=== PATIENT | female | born 1950 | race Caucasian/White ===

== ENCOUNTER 2021-03-19 10:40 | Outpatient (REF) | payer MEDICARE, MEDICAID, SELFPAY ==
[2021-03-19 13:47] LABS: MANUAL DIFF FLAG NO
[2021-03-19 13:52] LABS: Basophils Percent Auto 0.3 % (0-2); Eosinophils Absolute Auto 0.1 X10*3/uL (0.0-0.4); Eosinophils Percent Auto 1.3 % (0-4); Hematocrit 38.1 % (37.0-47.0); Hemoglobin 12.9 g/dl (12.0-16.0); Imm Gran Abs Auto 0.01 X10*3/uL (0.00-0.03); Imm Gran Pct Auto 0.3 % (0.0-0.4); Lymphocytes Percent Auto 24.4 % (20-40); Mean Corpuscular HGB Conc 33.9 g/dl (31.0-35.0); Mean Corpuscular Hemoglobin 31.4 pg (27.0-33.0); Mean Corpuscular Volume 92.7 fL (80.0-98.0); Mean Platelet Volume 10.8 fL (9.4-12.3); Monocytes Absolute Auto 0.4 X10*3/uL (0.1-1.2); Monocytes Percent Auto 9.7 % (2-11); Neutrophils Absolute Auto 2.5 x10*3/uL (2.0-8.3); Platelet Count 180 X10*3/uL (160-400); Red Blood Count 4.11 X10*6/uL (4.20-5.50); Red Cell Distribution Width 13.2 % (11.0-16.0); White Blood Count 3.9 X10*3/uL (4.8-10.8)
[2021-03-19 14:37] LABS: Alanine Aminotransferase 19 U/L (0-31); Albumin Level 3.9 g/dL (3.5-5.0); Alkaline Phosphatase 74 U/L (39-117); Anion Gap 11 (12-20); Aspartate Amino Transferase 24 U/L (5-31); Bilirubin Total 0.8 mg/dL (0.0-1.0); Blood Urea Nitrogen 16 mg/dL (9-16); Calcium 9.2 mg/dL (8.4-10.2); Carbon Dioxide 31 mmol/L (22-29); Chloride 104 mmol/L (96-108); Cholesterol 218 mg/dL; Estimated Glomerular Filt Rate > 60; Glucose Fasting 86 mg/dL (60-99); HDL Cholesterol 78 mg/dL; LDL Cholesterol Calculated 128 mg/dl; Potassium 3.8 mmol/L (3.3-5.1); Sodium 142 mmol/L (135-145); Total Protein 6.5 g/dL (6.5-8.0); Triglycerides 60 mg/dL
[2021-03-19 15:03] LABS: Thyroid Stimulating Hormone 0.47 uIU/mL (0.32-4.0)
== END 2021-03-19 10:41 | disposition home or self-care (01) ==
LOC: HO.10HDL 10:40
PROVIDERS: Visit Provider Internal Medicine
DX: R07.89 Other chest pain (principal); I10 Essential (primary) hypertension; R06.2 Wheezing; R60.0 Localized edema
CPT/HCPCS: 36415; 80053; 80061; 84443; 85025

== ENCOUNTER 2021-06-17 09:53 | Outpatient (REF) | payer MEDICARE, MEDICAID, SELFPAY ==
[2021-06-17 10:26] LABS: Estimated Average Glucose 94 mg/dL; Hemoglobin A1c % 4.9 %
[2021-06-17 10:58] LABS: Alanine Aminotransferase 14 U/L (0-31); Albumin Level 3.9 g/dL (3.5-5.0); Alkaline Phosphatase 79 U/L (39-117); Anion Gap 10 (12-20); Aspartate Amino Transferase 21 U/L (5-31); Bilirubin Total 0.5 mg/dL (0.0-1.0); Blood Urea Nitrogen 26 mg/dL (9-16); Calcium 9.2 mg/dL (8.4-10.2); Carbon Dioxide 32 mmol/L (22-29); Chloride 103 mmol/L (96-108); Estimated Glomerular Filt Rate > 60; Glucose Fasting 90 mg/dL (60-99); Potassium 3.4 mmol/L (3.3-5.1); Sodium 142 mmol/L (135-145); Total Protein 6.5 g/dL (6.5-8.0)
== END 2021-06-17 09:54 | disposition home or self-care (01) ==
LOC: HO.10HDL 09:53
PROVIDERS: Visit Provider Internal Medicine
DX: Z00.00 Encounter for general adult medical examination without abnormal findings (principal); E78.00 Pure hypercholesterolemia, unspecified; I10 Essential (primary) hypertension; Z86.010 Personal history of colon polyps
CPT/HCPCS: 36415; 80053; 83036

== ENCOUNTER 2021-09-16 10:38 | Outpatient (REF) | payer MEDICARE, MEDICAID, SELFPAY ==
[2021-09-16 13:30] LABS: Alanine Aminotransferase 15 U/L (0-31); Albumin Level 3.8 g/dL (3.5-5.0); Alkaline Phosphatase 73 U/L (39-117); Anion Gap 10 (12-20); Aspartate Amino Transferase 19 U/L (5-31); Bilirubin Total 0.5 mg/dL (0.0-1.0); Blood Urea Nitrogen 16 mg/dL (9-16); Calcium 8.6 mg/dL (8.4-10.2); Carbon Dioxide 30 mmol/L (22-29); Chloride 106 mmol/L (96-108); Cholesterol 169 mg/dL; Estimated Glomerular Filt Rate > 60; Glucose Fasting 80 mg/dL (60-99); HDL Cholesterol 74 mg/dL; LDL Cholesterol Calculated 88 mg/dl; Potassium 3.6 mmol/L (3.3-5.1); Sodium 142 mmol/L (135-145); Total Protein 6.3 g/dL (6.5-8.0); Triglycerides 37 mg/dL
[2021-09-16 13:44] LABS: Thyroid Stimulating Hormone 0.27 uIU/mL (0.32-4.0); Vitamin D 25-OH Total 29.4 ng/mL (>30)
== END 2021-09-16 10:39 | disposition home or self-care (01) ==
LOC: HO.10HDL 10:38
PROVIDERS: Visit Provider Internal Medicine
DX: E78.00 Pure hypercholesterolemia, unspecified (principal); I10 Essential (primary) hypertension; M23.90 Unspecified internal derangement of unspecified knee
CPT/HCPCS: 36415; 80053; 80061; 82306; 84443

== ENCOUNTER 2021-09-24 16:16 | Outpatient (REF) | payer MEDICARE, MEDICAID, SELFPAY | END 2021-09-24 16:17 | disposition home or self-care (01) | LOC: HO.LAB 16:16 | PROVIDERS: PCP Internal Medicine; Visit Provider Internal Medicine | DX: R35.0 Frequency of micturition (principal) | CPT/HCPCS: 87086 ==

== ENCOUNTER 2021-12-22 10:28 | Outpatient (REF) | payer MEDICARE, MEDICAID, SELFPAY ==
[2021-12-22 12:57] LABS: TSH reflex Free T4 0.43 uIU/mL (0.32-4.0)
[2021-12-24 00:56] LABS: Triiodothyronine T3 Free 3.4 pg/mL (2.3-4.2)
== END 2021-12-22 10:29 | disposition home or self-care (01) ==
LOC: HO.LAB 10:28
PROVIDERS: PCP Internal Medicine; Visit Provider Internal Medicine
DX: E05.90 Thyrotoxicosis, unspecified without thyrotoxic crisis or storm (principal); E78.00 Pure hypercholesterolemia, unspecified; I10 Essential (primary) hypertension; R35.0 Frequency of micturition
CPT/HCPCS: 36415; 84443; 84481

== ENCOUNTER 2022-03-23 10:01 | Outpatient (REF) | payer MEDICARE, MEDICAID, SELFPAY ==
[2022-03-23 10:55] LABS: MANUAL DIFF FLAG NO
[2022-03-23 11:03] LABS: Basophils Percent Auto 0.6 % (0-2); Eosinophils Percent Auto 0.8 % (0-4); Hematocrit 37.4 % (37.0-47.0); Hemoglobin 12.3 g/dl (12.0-16.0); Imm Gran Abs Auto 0.01 X10*3/uL (0.00-0.03); Imm Gran Pct Auto 0.3 % (0.0-0.4); Lymphocytes Absolute Auto 1.1 X10*3/uL (1.2-4.9); Lymphocytes Percent Auto 29.9 % (20-40); Mean Corpuscular HGB Conc 32.9 g/dl (31.0-35.0); Mean Corpuscular Hemoglobin 31.7 pg (27.0-33.0); Mean Corpuscular Volume 96.4 fL (80.0-98.0); Mean Platelet Volume 11.1 fL (9.4-12.3); Monocytes Absolute Auto 0.4 X10*3/uL (0.1-1.2); Monocytes Percent Auto 10.1 % (2-11); Neutrophils Absolute Auto 2.1 x10*3/uL (2.0-8.3); Neutrophils Percent Auto 58.3 % (45-73); Platelet Count 150 X10*3/uL (160-400); Red Blood Count 3.88 X10*6/uL (4.20-5.50); Red Cell Distribution Width 12.7 % (11.0-16.0); White Blood Count 3.6 X10*3/uL (4.8-10.8)
[2022-03-23 11:42] LABS: Alanine Aminotransferase 16 U/L (0-31); Albumin Level 3.8 g/dL (3.5-5.0); Alkaline Phosphatase 68 U/L (39-117); Anion Gap 8 (12-20); Aspartate Amino Transferase 24 U/L (5-31); Bilirubin Total 0.6 mg/dL (0.0-1.0); Blood Urea Nitrogen 14 mg/dL (9-16); Calcium 8.6 mg/dL (8.4-10.2); Carbon Dioxide 31 mmol/L (22-29); Chloride 106 mmol/L (96-108); Cholesterol 194 mg/dL; Estimated Glomerular Filt Rate > 60; Glucose Fasting 86 mg/dL (60-99); HDL Cholesterol 73 mg/dL; LDL Cholesterol Calculated 113 mg/dl; Potassium 3.6 mmol/L (3.3-5.1); Sodium 141 mmol/L (135-145); Triglycerides 44 mg/dL; Vitamin D 25-OH Total 32.8 ng/mL (>30)
== END 2022-03-23 10:02 | disposition home or self-care (01) ==
LOC: HO.10HDL 10:01
PROVIDERS: Visit Provider Internal Medicine
DX: E78.00 Pure hypercholesterolemia, unspecified (principal); I10 Essential (primary) hypertension; R07.89 Other chest pain
CPT/HCPCS: 36415; 80053; 80061; 82306; 85025

== ENCOUNTER 2022-06-15 10:15 | Outpatient (REF) | payer MEDICARE, MEDICAID, SELFPAY ==
[2022-06-15 10:50] LABS: MANUAL DIFF FLAG NO
[2022-06-15 10:57] LABS: Basophils Percent Auto 0.4 % (0-2); Eosinophils Absolute Auto 0.1 X10*3/uL (0.0-0.4); Eosinophils Percent Auto 2.2 % (0-4); Hematocrit 37.1 % (37.0-47.0); Hemoglobin 12.2 g/dl (12.0-16.0); Imm Gran Abs Auto 0.01 X10*3/uL (0.00-0.03); Imm Gran Pct Auto 0.4 % (0.0-0.4); Lymphocytes Absolute Auto 0.9 X10*3/uL (1.2-4.9); Lymphocytes Percent Auto 32.3 % (20-40); Mean Corpuscular HGB Conc 32.9 g/dl (31.0-35.0); Mean Corpuscular Hemoglobin 31.2 pg (27.0-33.0); Mean Corpuscular Volume 94.9 fL (80.0-98.0); Mean Platelet Volume 10.3 fL (9.4-12.3); Monocytes Absolute Auto 0.3 X10*3/uL (0.1-1.2); Monocytes Percent Auto 11.5 % (2-11); Neutrophils Absolute Auto 1.5 x10*3/uL (2.0-8.3); Neutrophils Percent Auto 53.2 % (45-73); Platelet Count 152 X10*3/uL (160-400); Red Blood Count 3.91 X10*6/uL (4.20-5.50); Red Cell Distribution Width 13.4 % (11.0-16.0); White Blood Count 2.8 X10*3/uL (4.8-10.8)
== END 2022-06-15 10:16 | disposition home or self-care (01) ==
LOC: HO.10HDL 10:15
PROVIDERS: Visit Provider Internal Medicine
DX: Z00.00 Encounter for general adult medical examination without abnormal findings (principal); D69.6 Thrombocytopenia, unspecified; I10 Essential (primary) hypertension; M17.11 Unilateral primary osteoarthritis, right knee
CPT/HCPCS: 36415; 85025

== ENCOUNTER 2022-09-16 10:13 | Outpatient (REF) | payer MEDICARE, MEDICAID, SELFPAY ==
[2022-09-16 11:37] LABS: Alanine Aminotransferase 13 U/L (0-31); Albumin Level 3.8 g/dL (3.5-5.0); Alkaline Phosphatase 74 U/L (39-117); Anion Gap 9 (12-20); Aspartate Amino Transferase 21 U/L (5-31); Bilirubin Total 0.7 mg/dL (0.0-1.0); Blood Urea Nitrogen 20 mg/dL (9-16); Calcium 9.3 mg/dL (8.4-10.2); Carbon Dioxide 30 mmol/L (22-29); Chloride 106 mmol/L (96-108); Estimated Glomerular Filt Rate > 60; Glucose Random 83 mg/dL (60-115); Potassium 4.2 mmol/L (3.3-5.1); Sodium 141 mmol/L (135-145); Total Protein 6.4 g/dL (6.5-8.0)
[2022-09-16 11:55] LABS: Free T4 (Free Thyroxine) 1.04 ng/dL (0.71-1.85); Thyroid Stimulating Hormone 0.45 uIU/mL (0.32-4.0)
[2022-09-18 04:53] LABS: Triiodothyronine T3 Free 3.7 pg/mL (2.3-4.2)
== END 2022-09-16 10:14 | disposition home or self-care (01) ==
LOC: HO.10HDL 10:13
PROVIDERS: Visit Provider Internal Medicine
DX: G47.33 Obstructive sleep apnea (adult) (pediatric) (principal); D69.6 Thrombocytopenia, unspecified; E05.90 Thyrotoxicosis, unspecified without thyrotoxic crisis or storm; I10 Essential (primary) hypertension; M17.11 Unilateral primary osteoarthritis, right knee
CPT/HCPCS: 36415; 80053; 84439; 84443; 84481

== ENCOUNTER 2023-09-29 09:55 | Outpatient (REF) | payer MEDICARE, MEDICAID, SELFPAY ==
[2023-09-29 10:56] LABS: MANUAL DIFF FLAG NO
[2023-09-29 11:02] LABS: Basophils Percent Auto 0.3 % (0-2); Eosinophils Absolute Auto 0.1 X10*3/uL (0.0-0.4); Eosinophils Percent Auto 2.1 % (0-4); Hematocrit 36.9 % (37.0-47.0); Hemoglobin 12.7 g/dl (12.0-16.0); Imm Gran Abs Auto 0.01 X10*3/uL (0.00-0.03); Imm Gran Pct Auto 0.3 % (0.0-0.4); Lymphocytes Absolute Auto 1.2 X10*3/uL (1.2-4.9); Lymphocytes Percent Auto 34.8 % (20-40); Mean Corpuscular HGB Conc 34.4 g/dl (31.0-35.0); Mean Corpuscular Hemoglobin 31.8 pg (27.0-33.0); Mean Corpuscular Volume 92.3 fL (80.0-98.0); Mean Platelet Volume 10.9 fL (9.4-12.3); Monocytes Absolute Auto 0.4 X10*3/uL (0.1-1.2); Monocytes Percent Auto 10.5 % (2-11); Neutrophils Absolute Auto 1.7 x10*3/uL (2.0-8.3); Platelet Count 148 X10*3/uL (160-400); Red Cell Distribution Width 13.2 % (11.0-16.0); White Blood Count 3.3 X10*3/uL (4.8-10.8)
[2023-09-29 11:20] LABS: Alanine Aminotransferase 12 U/L (0-31); Alkaline Phosphatase 77 U/L (39-117); Anion Gap 10 (12-20); Aspartate Amino Transferase 21 U/L (5-31); Bilirubin Total 0.9 mg/dL (0.0-1.0); Blood Urea Nitrogen 20 mg/dL (9-16); Calcium 9.2 mg/dL (8.4-10.2); Carbon Dioxide 29 mmol/L (22-29); Chloride 107 mmol/L (96-108); Cholesterol 176 mg/dL (<200); Estimated Glomerular Filt Rate > 60; Glucose Random 82 mg/dL (60-115); HDL Cholesterol 73 mg/dL (>40); LDL Cholesterol Calculated 96 mg/dL (<100); Potassium 3.5 mmol/L (3.3-5.1); Sodium 142 mmol/L (135-145); Total Protein 6.9 g/dL (6.5-8.0); Triglycerides 39 mg/dL (<150)
== END 2023-09-29 09:56 | disposition home or self-care (01) ==
LOC: HO.10HDL 09:55
PROVIDERS: Visit Provider Internal Medicine
DX: Z00.00 Encounter for general adult medical examination without abnormal findings (principal); E05.90 Thyrotoxicosis, unspecified without thyrotoxic crisis or storm; E78.00 Pure hypercholesterolemia, unspecified; I10 Essential (primary) hypertension; Z85.3 Personal history of malignant neoplasm of breast; Z96.651 Presence of right artificial knee joint
CPT/HCPCS: 36415; 80053; 80061; 84443; 85025

== ENCOUNTER 2024-04-09 10:39 | Outpatient (REF) | payer OTHER, SELFPAY ==
[2024-04-09 10:59] LABS: MANUAL DIFF FLAG NO
[2024-04-09 11:08] LABS: Basophils Percent Auto 0.2 % (0-2); Eosinophils Percent Auto 0.5 % (0-4); Hematocrit 36.9 % (37.0-47.0); Hemoglobin 12.7 g/dl (12.0-16.0); Imm Gran Abs Auto 0.01 X10*3/uL (0.00-0.03); Imm Gran Pct Auto 0.2 % (0.0-0.4); Lymphocytes Absolute Auto 1.1 X10*3/uL (1.2-4.9); Mean Corpuscular HGB Conc 34.4 g/dl (31.0-35.0); Mean Corpuscular Hemoglobin 32.8 pg (27.0-33.0); Mean Corpuscular Volume 95.3 fL (80.0-98.0); Monocytes Absolute Auto 0.3 X10*3/uL (0.1-1.2); Monocytes Percent Auto 8.3 % (2-11); Neutrophils Absolute Auto 2.7 x10*3/uL (2.0-8.3); Neutrophils Percent Auto 64.8 % (45-73); Platelet Count 150 X10*3/uL (160-400); Red Blood Count 3.87 X10*6/uL (4.20-5.50); Red Cell Distribution Width 13.3 % (11.0-16.0); White Blood Count 4.1 X10*3/uL (4.8-10.8)
[2024-04-09 11:41] LABS: Alanine Aminotransferase 20 U/L (0-31); Albumin Level 4.1 g/dL (3.5-5.0); Alkaline Phosphatase 78 U/L (39-117); Anion Gap 12 (12-20); Aspartate Amino Transferase 29 U/L (5-31); Bilirubin Total 0.6 mg/dL (0.0-1.0); Blood Urea Nitrogen 18 mg/dL (9-16); Calcium 8.9 mg/dL (8.4-10.2); Carbon Dioxide 27 mmol/L (22-29); Chloride 109 mmol/L (96-108); Cholesterol 169 mg/dL (<200); Estimated Glomerular Filt Rate > 60; Glucose Random 88 mg/dL (60-115); HDL Cholesterol 75 mg/dL (>40); LDL Cholesterol Calculated 85 mg/dL (<100); Potassium 4.1 mmol/L (3.3-5.1); Sodium 144 mmol/L (135-145); Triglycerides 47 mg/dL (<150)
[2024-04-13 11:58] LABS: VITAMIN D (1,25 OH) D3 37 pg/mL; Vit D (1,25-Dihydroxy) Total 37 pg/mL (18-72); Vitamin D (1,25 OH) D2 <8 pg/mL
== END 2024-04-09 10:40 | disposition home or self-care (01) ==
LOC: HO.LAB 10:39
PROVIDERS: PCP Internal Medicine; Visit Provider Internal Medicine
DX: D69.59 Other secondary thrombocytopenia (principal); E78.00 Pure hypercholesterolemia, unspecified; I10 Essential (primary) hypertension; M81.8 Other osteoporosis without current pathological fracture; Z68.23 Body mass index [BMI] 23.0-23.9, adult
CPT/HCPCS: 36415; 80053; 80061; 82652; 85025

== ENCOUNTER 2024-10-11 08:55 | Outpatient (REF) | payer OTHER, SELFPAY ==
--- OUTSIDE RECORDS SUMMARY | 2024-10-11 09:07 | XMS_ITS ---
Author Organization [facility] Care Team Providers Care Pediatric Immunologist Name Role Phone Shannen Whiteside Unavailable Unavailable Mireya Ace Unavailable Unavailable Lena Vides Unavailable Unavailable Leelee Cid Unavailable Unavailable Ye THOMPSON, Kirit Sargent Unavailable Unavailable Shandra Smiley Unavailable Unavailable Mireille Wright Unavailable Unavailable Allergies and adverse reactions Code CodeSystem Substance Reaction Severity StartDate Concern Status 028963823 SNOMED CT Penicillins Unknown 08/27/2020 activ e 7804 RXNORM Oxycodone Unknown 08/27/2020 active 6754 RXNORM Meperidine Unknown 08/27/2020 active 2670 RXNORM Codeine Unknown 08/27/2020 active 733 RXNORM Ampicillin Unknown 08/27/2020 active 723 RXNORM Amoxicillin Unknown 08/27/2020 active Care Team Name Role Address Phone Organization [facility] [address] [place] [address], [id number], [facility] (Office): : [facility] 08/27/2020 - 09/14/2020 Shannen Whiteside [address] [place] [address], [place], [address], [place] (Office): : [facility] 08/27/2020 - 09/14/2020 Lenaevon Vides [address] [place] [address], [id number], [facility] (Office): : [phone] [facility] 08/27/2020 - 09/14/2020 Leelee Cid [address] [facility] [address], [facility] [id number] [place] [address] (Office): : [facility] 08/27/2020 - 09/14/2020 Kirit Belcher NP [address] [facility] [address] (Office): [facility] 08/27/2020 - 09/14/2020 Shandra Smiley [address] [facility] [address], [address] (Office): : [phone] [facility] 08/27/2020 - 09/14/2020 Mireille Wright [address] [place] [address], [facility] (Office): : [facility] 08/27/2020 - 09/14/2020 Mental Status Section Date Assessment Total Score Description 09/14/2020 BIMS 15 cognitively int act CAM 0 No delirium ind icated PHQ-9 00 09/02/2020 BIMS 15 cognitively int act CAM 0 No delirium ind icated PHQ-9 00 Problems Problem # Description Date of onset Resolved Date Code CodeSystem Concern Status 1 DIZZINESS AND GIDDINESS 08/27/[address] active 2 ESSENTIAL (PRIMARY) HYPERTENSION 08/27/[address] active 3 OTHER ABNORMALITIES OF GAIT AND MOBILITY 08/27/[address] active 4 OTHER NONDISPLACED FRACTURE OF UPPER END OF LEFT HUMERUS, SUBSEQUENT ENCOUNTER FOR FRACTURE WITH ROUTINE HEALING 08/27/[address] active 5 UNILATERAL PRIMARY OSTEOARTHRITIS, RIGHT HIP 08/27/[address] active 6 UNSPECIFIED FALL, SUBSEQUENT ENCOUNTER 08/27/[address] active 7 UNSPECIFIED FRACTURE OF UPPER END OF UNSPECIFIED HUMERUS, SUBSEQUENT ENCOUNTER FOR FRACTURE WITH ROUTINE HEALING 08/27/[address] active 8 UNSTEADINESS ON FEET 08/27/[address] active 9 WEAKNESS 08/27/[address] active Reason for Referral No Reasons for Referral Entered Social History Social History Observation Description Start Date End Date Code Code System Current Smoking Status Tobacco smoking consumption unknown 481331933 SNOMED CT Sex Assigned At Female 1950 41287-3 [facility] Gender Identity Vital Signs Code Code System Vitals Name Values and Units Timing Information 17261-0 [facility] Pain Level Value=7.0 09/14/2020 9279-1 [facility] Respiratory Rate Value=12.0 Units=/m in 09/12/2020 8462-4 [facility] Blood Pressure-Diastolic Value=66 Un its=mmHg 09/12/2020 8480-6 [facility] Blood Pressure-Systolic Avwzd=760 Un its=mmHg 09/12/2020 8310-5 [facility] Body Temperature Value=96.7 Units= F 09/12/2020 25675-3 [facility] O2 % BldC Oximetry Value=95.0 Units= % 09/12/2020 8867-4 [facility] Heart rate Value=86.0 Units=/min
--- OUTSIDE RECORDS SUMMARY | 2024-10-11 09:07 | XMS_ITS | Clinical Summary ---
Author Organization [facility] Address [address] [place] [address] Phone Care Team Providers Care Brazer Crawler Torch Name Role Phone Telma Olmstead MD Primary Care Provider [phone] Allergies Active Allergy Reactions Criticality Noted Date Comments Jerrell Inhibitors Cough 04/23/2019 Amlodipine 04/23/2019 Leg edema Amoxicillin 10/28/2016 Codeine 10/28/2016 Not listed Meperidine 10/28/2016 Meperidine Hcl 04/23/2019 Not listed Morphine 03/03/2021 Oxycodone-Acetaminophen 10/28/2016 Medications metoprolol succinate (TOPROL-XL) 50 mg 24 hr tablet TAKE 1 AND 1/2 TABLETS BY MOUTH EVERY DAY Active acetaminophen (TYLENOL) 325 mg tablet Take 650 mg by mouth every 6 hours as needed. Active hydroCHLOROthia zide (HYDRODIURIL) 25 mg tablet Take 25 mg by mouth daily. Active pantoprazole (PROTONIX) 40 mg EC tablet Take 1 Tablet by mouth as needed. Active rosuvastatin (CRESTOR) 40 mg tablet Take 1 Tablet by mouth daily. Active losartan (COZAAR) 50 mg tablet Take 50 mg by mouth daily. Active Active Problems Problem Noted Date Diagnosed Date Diverticulosis 03/23/2024 Esophagitis, [place] grade A 03/23/2024 Gastric ulcer 03/23/2024 Hiatal hernia 03/23/2024 Internal hemorrhoids 03/23/2024 Atypical chest pain 02/03/2022 Gastro-esophageal reflux disease without esophag itis 02/03/2022 Chest pain 01/08/2022 Overview (03/23/2024): Last Assessment & Plan: We did discuss her chest discomfort. Its not clear what the etiology of this is. I have asked her to repeat a stress test to rule out coronary artery disease. We did discuss that this could be more of her esophageal spasm or musculoskeletal type pain. Edema 08/20/2021 Overview (03/23/2024): Last Assessment & Plan: Her leg edema has been stable on her hydrochlorothiazide. She will continue on this and will continue to monitor. We will be checking labs to make sure her electrolytes are stable. Cyst of right ovary 07/08/2020 Hypertension 06/09/2020 Overview (03/23/2024): Last Assessment & Plan: Patient's blood pressure today 124/78. This is under excellent control. Continue with hydrochlorothiazide, losartan and metoprolol as prescribed. Lightheadedness 06/09/2020 Palpitations 06/09/2020 Overview (03/23/2024): Last Assessment & Plan: Patient denies any recurrent palpitations. Her symptoms are well controlled on her present dose of beta-kathryn metoprolol 5 mg daily. Continue as prescribed. Pure hypercholesterolemia 06/09/2020 Overview (03/23/2024): Last Assessment & Plan: Patient continues on rosuvastatin 40 mg once a day. We will update a lipid panel. Encounters Date Type Department Care Team Description 08/27/2024 2:24 PM EDT - 08/27/2024 11:59 PM EDT [facility] [address] [phone] Cyst of right ovary; Screening mammogram for breast cancer; History of breast cancer Discharge Disposition: Home or Self Care 08/16/2024 2:00 PM EDT Office Visit Breast [address] [place] [address] Maria Isabel Choe MD Cyst of right ovary (Primary Dx); Screening mammogram for breast cancer; History of breast cancer; Right lower quadrant abdominal swelling, mass and lump 08/09/2024 1:19 PM EDT - 08/09/2024 11:59 PM EDT Hospital Encounter [facility] Ultrasound [address] [place] [address] Cyst of right ovary Discharge Disposition: Home or Self Care from Last 3 Months Surgical History Surgery Date Site/Laterality Comments ESOPHAGOGASTRODUODENOSCOPY PROCEDURE: [place] EGD TRANSORAL BIOPSY SINGLE/MULTIPLE; COMMENT: Performed in 2016 COLONOSCOPY PROCEDURE: HISTORICAL COLONOSCOPY; COMMENT: Performed in 2016 HIP ARTHROPLASTY PROCEDURE: HISTORICAL HIP REPLACEMENT COLONOSCOPY 05/27/2020 PROCEDURE: HISTORICAL COLONOSCOPY; COMMENT: mild sigmoid diverticulosis and small internal hemorrhoids UPPER GASTROINTESTINAL ENDOSCOPY 05/27/2020 PROCEDURE: NJ UPPER GI ENDOSCOPY PERFORMED; COMMENT: small esophageal erosion and small hiatal hernia BREAST LUMPECTOMY 2013 Left PROCEDURE: HISTORICAL BREAST LUMPECTOMY CHOLECYSTECTOMY PROCEDURE: HISTORICAL CHOLECYSTECTOMY HYSTEROSCOPY 07/02/2020 PROCEDURE: NJ HYSTEROSCOPY BX ENDOMETRIUM&/POLYPC W/WO D&C; COMMENT: Hysteroscopy, dilation and curettage CATARACT EXTRACTION Left PROCEDURE: HISTORICAL CATARACT REMOVAL Medical History Medical History Date Comments Internal hemorrhoids DX:Internal hemorrhoids Diverticulosis DX:Diverticulosi s Gastric ulcer DX:Gastric ulcer History of hip replacement DX:Hi story of hip replacement History of sepsis DX:History of sepsis; COMMENT: Secondary to UTI Esophagitis, [place] grade A DX:Esophagitis, [place] grade A Hiatal hernia DX:Hiatal hernia Tubular adenoma DX:Tubular adeno ma Rheumatoid arthritis ([facility]/ C V24, [facility] V28) DX:Rheumatoid arthritis (HCC ) Nephrolithiasis DX:Nephrolithias is Glaucoma DX:Glaucoma Breast cancer ([facility] V24, [facility] V28) DX:Breast cancer ([facility]); COMMENT: s/p left side lumpectomy in 2013 ADD (attention deficit disorder) DX:ADD (attention deficit disorder) Arthritis DX:Arthritis History of shoulder fracture 04/2006 DX: History of shoulder fracture Ankle fracture, right 1998 DX:Ankle f racture, right Hip fracture ([facility] V24, [facility] V28) 05/2018 DX:Hip fracture ([facility]); COMMENT: right ; s/p ORIF Herpes zoster DX:Herpes zoster Shingles DX:Shingles Dextroscoliosis DX:Dextroscolios is Atypical chest pain DX:Atypical chest pain Esophageal reflux DX:Esophageal reflux Gastro-esophageal reflux dis ease without esophagitis DX:Gastro-esophageal reflux disease without esophagitis Hiatal hernia DX:Hiatal hernia Family History Medical History Relation Name Comments Colon cancer Father Arthritis Mother ankylosing spon dylitis Hypertension Mother Multiple sclerosis Sister Relation Name Status Comments Father Mother Sister Social History Tobacco Use Types Packs/Day Years Used Date Smoking Tobacco: Former Cigarettes Q uit: 04/11/1983 Smokeless Tobacco: Never Alcohol Use Standard Drinks/Week Comments Not Currently 0 (1 standard drink = 0.6 oz pur e alcohol) rarely Comments No Sex and Gender Information Value Date Recorded Sex Assigned at Female 06/13/2024 9:08 AM EST Legal Sex Female 10:15 PM EST Gender Identity Female 06/13/2024 9:08 AM EST Sexual Orientation Choose not to disclose 2024 9:11 AM EST Obstetrics History Last Filed Vital Signs Vital Sign Reading Time Taken Comments Blood Pressure 119/72 08/16/2024 2:01 PM EDT Pulse 68 08/16/2024 2:01 PM EDT Temperature 36.4 C (97.5 F) 08/16/2024 2:01 PM EDT Respiratory Rate 16 04/27/2024 9:43 PM EST Oxygen Saturation 96% 04/27/2024 9:43 PM EST Inhaled Oxygen Concentration - - Weight 65.3 kg (144 lb) 08/27/2024 2:46 PM EDT Height 149.9 cm (4' 11 ) 08/27/2024 2:46 PM EDT Body Mass Index 29.08 08/27/2024 2:46 PM EDT Plan of Treatment Upcoming Encounters Date Type Department Care Team (Late st Contact Info) Description 02/19/2025 11:00 AM EST Office Visit [facility] [address] [place] [phone] Maria Isabel Choe MD [address] [place] [address] Health Maintenance Due Date Last Done Comments Cholesterol Screening (Lipid Panel) 03/19/2022 Depression Screening 03/19/2022 Falls Risk Assessment 03/19/2022 Hepatitis C Screening 03/19/2022 Medicare Annual Wellness Visit 03/19/2022 Social Influencers of Health Screening 03/19/2022 COVID-19 Vaccine ( season) 2023 02/27/2023, 01/06/2022, 07/29/2021, Additional history exists Influenza Vaccine (Season Ended) 2024 01/11/2023, 01/06/2022, 03/23/2021, Additional history exists Hypertension/CHF/CAD Annual BMP Blood Test 04/27/2025 04/27/2024, 12/22/2020 Colorectal Cancer Screening: Colonoscopy 05/27/2025 05/27/2020 DTaP,Tdap,and Td Vaccines (3 - Td or Tdap) 01/19/2031 01/19/2021, 01/03/2021 Osteoporosis Screening (Bone Density Screening) 10/31/2033 11/01/2023, 08/19/2022, 08/15/2020, Additional history exists Pneumococcal Vaccine: 50+ Years Completed 12/22/2020, 12/19/2015 Zoster Vaccines Completed 02/06/2021, 12/07/2020 RSV Immunization Adult Patients Completed 02/17/2024 Breast Cancer Screening Discontinued 08/28/19, 05/31/2023, 05/27/2022, Additional history exists HIB Vaccines Aged Out No longer eligi ble based on patient's age to complete this topic HPV Vaccines Aged Out No longer eligi ble based on patient's age to complete this topic Hepatitis A Vaccines Aged Out No long er eligible based on patient's age to complete this topic Hepatitis B Vaccines Aged Out No long er eligible based on patient's age to complete this topic IPV Vaccines Aged Out No longer eligi ble based on patient's age to complete this topic MMR Vaccines Aged Out No longer eligi ble based on patient's age to complete this topic Meningococcal ACWY Vaccine Aged Out N o longer eligible based on patient's age to complete this topic Meningococcal B Vaccine Aged Out No l onger eligible based on patient's age to complete this topic RSV Immunization Patients Under 20 months Aged Out No longer eligible based on patient's age to complete this topic Varicella Vaccines Aged Out No longer eligible based on patient's age to complete this topic Procedures Procedure Name Priority Date/Time Associated Diagnosis Comments MG MAMMO DIGITAL SCREENING W SHAUN BILAT Routine 08/27/2024 3:16 PM EDT Cyst of right ovary Screening mammogram for breast cancer History of breast cancer CANCER ANTIGEN 125 Routine 08/17/2024 2: 10 PM EDT Cyst of right ovary History of breast cancer Right lower quadrant abdominal swelling, mass and lump US PELVIS TRANSVAGINAL NON OB Routine 08/09/2024 2:00 PM EDT Cyst of right ovary COMPREHENSIVE METABOLIC PANEL STAT 04/27/2024 5:14 PM EST VANESSA DEXA AXIAL SKELETON Routine 11/01/2023 8:05 AM EDT Other specified disorders of bone density and structure, multiple sites HM COLONOSCOPY Routine 05/27/2020 from Last 3 Months or Most Recently Relevant to Health Maintenance Results * MG Mammo Digital Screening w Hsaun bilat (08/27/2024 3:16 PM EDT) Anatomical Region Laterality Modality Breast Bilateral Mammography 08/27/2024 5:57 PM EDT Impressions 08/27/2024 6:03 PM EDT No mammographic evidence of new or recurrent malignancy. No suspicious interval change. A negative mammogram in the presence of a clinically suspicious palpable abnormality does not preclude the possibility of malignancy or alter the indications for biopsy. ASSESSMENT: BI-RADS 2: BENIGN RECOMMENDATION(S): 1: Routine screening mammogram BILATERAL in 1 year. [facility] location[facility] [address], [address] -------- FINAL REPORT -------- Dictated By: Rubio Tamayo Dictated Date: 08/27/2024 17:57 ET Assigned Physician: Rubio Tamayo Reviewed and Electronically Signed By: Rubio Tamayo Signed Date: 08/27/2024 18:03 ET Workstation ID: [id number] Transcribed By: Self Edit Transcribed Date: 08/27/2024 17:57 ET Narrative 08/27/2024 6:03 PM EDT EXAM: SCREENING MAMMOGRAPHY, BILATERAL HISTORY: SCREENING. History in the electronic medical record indicates history of left breast cancer. Previous reports indicate personal history of right breast cancer treated with lumpectomy 2013 followed by radiation. Excisional biopsy of left breast 2013 for atypical lobular hyperplasia. COMPARISON: 05/31/23, 05/27/22, 05/25/21, 05/21/20 TECHNIQUE: Synthesized CC and MLO projections of each breast. Tomosynthesis of each breast in the CC and MLO projections. ADDITIONAL IMAGING: None Computer-aided detection was employed with the [employer] AI 3-D. TISSUE DENSITY: There are scattered areas of fibroglandular density. (BI-RADS category B) FINDINGS: RIGHT BREAST: No suspicious mass. No suspicious calcification. There is some skin retraction and thickening with stable architecture from right breast surgery. There is no change in the region of a clip in the right axilla. No additional suspicious right breast findings LEFT BREAST: No suspicious mass. No suspicious calcification. Stable architectural distortion consistent with previous surgery. No new suspicious left breast finding Procedure Note Rubio Tamayo MD - 08/27/2024 EXAM: SCREENING MAMMOGRAPHY, BILATERAL HISTORY: SCREENING. History in the electronic medical record indicateshistory of left breast cancer. Previous reports indicate personal historyof right breast cancer treated with lumpectomy 2013 followed by radiation.Excisional biopsy of left breast 2013 for atypical lobular hyperplasia. COMPARISON: 05/31/23, 05/27/22, 05/25/21, 05/21/20 TECHNIQUE: Synthesized CC and MLO projections of each breast.Tomosynthesis of each breast in the CC and MLO projections. ADDITIONAL IMAGING: None Computer-aided detection was employed with the [employer] AI 3-D. TISSUE DENSITY: There are scattered areas of fibroglandular density.(BI-RADS category B) FINDINGS: RIGHT BREAST: No suspicious mass. No suspicious calcification. There is some skin retraction and thickening with stable architecture fromright breast surgery. There is no change in the region of a clip in theright axilla. No additional suspicious right breast findings LEFT BREAST: No suspicious mass. No suspicious calcification. Stable architectural distortion consistent with previous surgery. No newsuspicious left breast finding IMPRESSION: No mammographic evidence of new or recurrent malignancy. No suspicious interval change. A negative mammogram in the presence of a clinically suspicious palpableabnormality does not preclude the possibility of malignancy or alter theindications for biopsy. ASSESSMENT: BI-RADS 2: BENIGN RECOMMENDATION(S): 1: Routine screening mammogram BILATERAL in 1 year. [facility] location: [facility] [address] [place], [address] -------- FINAL REPORT -------- Dictated By: Rubio Tamayo Dictated Date: 08/27/2024 17:57 ET Assigned Physician: Rubio Tamayo Reviewed and Electronically Signed By: Rubio Tamayo Signed Date: 08/27/2024 18:03 ET Workstation ID: [id number] Transcribed By: Self Edit Transcribed Date: 08/27/2024 17:57 ET us Maria Isabel Choe MD IMG BI PROCEDURES Final Result * Cancer antigen 125 (08/17/2024 2:10 PM EDT) CA 125 11.4 <35.0 unit/mL LAB CHEMISTRY METHOD 08/17/2024 5:09 PM EDT [facility] Blood Venous blood specimen / Unknown Venipuncture / Unknown 08/17/2024 2:10 PM EDT 08/17/2024 4:00 PM EDT Narrative [facility] - 08/17/2024 5:09 PM EDT The Siemens Advia Centaur Chemiluminescent Immunoassay is used. Results obtained with different assay methods or kits cannot be used interchangeably. Results cannot be interpreted as absolute evidence of the presence or absence of malignant disease. us Maria Isabel Choe MD LAB BLOOD ORDERABLES Final Resul t [facility] [address] [place] [address], * US Pelvis Transvaginal Non OB (08/09/2024 2:00 PM EDT) Anatomical Region Laterality Modality Body Ultrasound 08/09/2024 5:33 PM EDT Impressions 08/09/2024 5:39 PM EDT Postmenopausal uterus. No suspicious mass. There is a persistent cyst in the region of the right ovary measuring 4.8 cm. No mural nodule thick septation or debris level. This has slightly increased in size O-RADS not applicable due to limited imaging detail but there are no suspicious features. -------- FINAL REPORT -------- Dictated By: Rubio Tamayo Dictated Date: 08/09/2024 17:33 ET Assigned Physician: Rubio Tamayo Reviewed and Electronically Signed By: Rubio Tamayo Signed Date: 08/09/2024 17:39 ET Workstation ID: [id number] Transcribed By: Self Edit Transcribed Date: 08/09/2024 17:33 ET Narrative 08/09/2024 5:39 PM EDT EXAM: PELVIC ULTRASOUND CLINICAL INFORMATION: Right ovarian cyst. Previous ultrasound demonstrated a right ovarian cyst. TECHNIQUE: Transcutaneous pelvic ultrasound. Transvaginal scanning was not performed. The patient reportedly was unable to tolerate transvaginal scanning. Color mapping was performed. Doppler spectral analysis was not performed. Comparison: Portions of previous 07/20/23 FINDINGS: Quality: Transcutaneous scanning was performed without an acoustical window. Detail limited. Expected region of vagina: No large abnormality. Cervix: No suspicious abnormality in the expected region of the cervix Uterine position: Anteverted Uterine size: 4.2 x 2.0 x 2.1 cm Endometrium: Not well visualized. No thickening suspected. Myometrium: No abnormality demonstrated. Uterine contour: Smooth Right ovary: The right ovary was not well visualized. There is a cyst in the right adnexa. The margins appear sharply defined. There is posterior enhancement. There is no thick septation, debris level or mural nodule. 08/09/24-4.8 x 4.4 x 4.8 cm 07/20/23-4.6 x 3.7 x 4.1 cm 12/10/20-3.0 x 3.5 x 3.2 cm Color mapping: No suspicious color signal present. Doppler spectral analysis: Not documented Left ovary: Not visualized. Color mapping: No suspicious color signal Doppler spectral analysis: Not documented Free fluid: None. Procedure Note Rubio Tamayo MD - 08/09/2024 EXAM: PELVIC ULTRASOUND CLINICAL INFORMATION: Right ovarian cyst. Previous ultrasound demonstrated a right ovarian cyst. TECHNIQUE: Transcutaneous pelvic ultrasound. Transvaginal scanning was not performed. The patient reportedly was unableto tolerate transvaginal scanning. Color mapping was performed. Doppler spectral analysis was not performed. Comparison: Portions of previous 07/20/23 FINDINGS: Quality: Transcutaneous scanning was performed without an acousticalwindow. Detail limited. Expected region of vagina: No large abnormality. Cervix: No suspicious abnormality in the expected region of the cervix Uterine position: Anteverted Uterine size: 4.2 x 2.0 x 2.1 cm Endometrium: Not well visualized. No thickening suspected. Myometrium: No abnormality demonstrated. Uterine contour: Smooth Right ovary: The right ovary was not well visualized. There is a cyst inthe right adnexa. The margins appear sharply defined. There is posterior enhancement. Thereis no thick septation, debris level or mural nodule. 08/09/24-4.8 x 4.4 x 4.8 cm 07/20/23-4.6 x 3.7 x 4.1 cm 12/10/20-3.0 x 3.5 x 3.2 cm Color mapping: No suspicious color signal present. Doppler spectral analysis: Not documented Left ovary: Not visualized. Color mapping: No suspicious color signal Doppler spectral analysis: Not documented Free fluid: None. IMPRESSION: Postmenopausal uterus. No suspicious mass. There is a persistent cyst in the region of the right ovary measuring 4.8cm. No mural nodule thick septation or debris level. This has slightly increased in size O-RADS not applicable due to limited imaging detail but there are nosuspicious features. -------- FINAL REPORT -------- Dictated By: Rubio Tamayo Dictated Date: 08/09/2024 17:33 ET Assigned Physician: Rubio Tamayo Reviewed and Electronically Signed By: Rubio Tamayo Signed Date: 08/09/2024 17:39 ET Workstation ID: [id number] Transcribed By: Self Edit Transcribed Date: 08/09/2024 17:33 ET us Maria Isabel Choe MD [facility] PROCEDURES Final Result * Comprehensive metabolic panel (04/27/2024 5:14 PM EST) Sodium 138 133 - 145 mmol/L LAB CHEMISTRY METHOD 04/27/2024 8:[address] [facility] Potassium 4.2 3.5 - 5.5 mmol/L LAB CHEMISTRY METHOD 04/27/2024 8:[address] [facility] Chloride 103 96 - 110 mmol/L LAB CHEMISTRY METHOD 04/27/2024 8:[address] [facility] CO2 30 21 - 32 mmol/L LAB CHEMISTRY METHOD 04/27/2024 8:[address] [facility] Anion Gap 5 3 - 11 LAB CHEMISTRY METHOD 04/27/2024 8:[address] [facility] Glucose 99 70 - 100 mg/dL LAB CHEMISTRY METHOD 04/27/2024 8:[address] [facility] BUN 21 5 - 25 mg/dL LAB CHEMISTRY METHOD 04/27/2024 8:[address] [facility] Creatinine 0.81 0.50 - 1.10 mg/dL LAB CHEMISTRY METHOD 04/27/2024 8:[address] [facility] eGFR 76 >=60 mL/min/1. 73m2 LAB CHEMISTRY METHOD 04/27/2024 8:[address] [facility] Comment:Calculation based on the Chronic Kidney Disease Epidemiology Collaboration (CKD-EPI) equation refit without adjustment for race. BUN/Creatinine Ratio 25.9 LAB CHEMISTRY METHOD 04/27/2024 8:[address] [facility] Calcium 8.6 8.5 - 10.5 mg/dL LAB CHEMISTRY METHOD 04/27/2024 8:[address] [facility] AST (SGOT) 22 10 - 42 unit/L LAB CHEMISTRY METHOD 04/27/2024 8:[address] [facility] ALT (SGPT) 19 10 - 60 unit/L LAB CHEMISTRY METHOD 04/27/2024 8:[address] [facility] Alkaline Phosphatase 83 42 - 121 unit/L LAB CHEMISTRY METHOD 04/27/2024 8:[address] [facility] Total Protein 7.1 6.0 - 8.0 g/dL LAB CHEMISTRY METHOD 04/27/2024 8:[address] [facility] Albumin 4.0 3.2 - 5.0 g/dL LAB CHEMISTRY METHOD 04/27/2024 8:[address] [facility] Total Bilirubin 0.6 0.0 - 1.4 mg/dL LAB CHEMISTRY METHOD 04/27/2024 8:[address] [facility] Blood Venous blood specimen / Unknown Venipuncture / Unknown 04/27/2024 5:14 PM EST 04/27/2024 5:27 PM EST us Pako Woodard DO LAB BLOOD ORDERABLES Final Resu lt [facility] [address] [place] [address], * VANESSA DEXA AXIAL SKELETON (11/01/2023 8:05 AM EDT) Anatomical Region Laterality Modality Mammography 10/31/2023 3:04 PM EDT Narrative 11/01/2023 8:[address] [facility] Diagnostic Imaging Department [address] [place] [address] Patient: CHINMAY ARRINGTON/Age/Sex: 1950 - 72 - F Unit#: [id number] Location/Status: SPDIMAM/REG CLI Mnemonic/Ordering Site: MAMDEXAAX/SPMAM Ordering Physician: TELMA OLMSTEAD MD Vanessa Dexa Axial Skeleton - 10/31/23 - 1525 Report Status:Signed HISTORY: The patient is a 72-year-old postmenopausal female with clinical concern for metabolic bone disease. The patient has undergone previous right hip replacement surgery. FINDINGS: Dual energy x-ray absorptiometry of the lumbar spine and left femur is performed. The mean bone mineral density at L1-L4 is 1.331 gm/cm2 which is 113% of that of young normals and 137% of that of age matched controls. This yields a T-score of 1.3 and a Z-score of 3.0 and there is therefore no evidence of osteoporosis or osteopenia here. The mean bone mineral density of the left femur is 0.824 gm/cm2 which is 82% of that of young normals and 104% of that of age matched controls. This yields a T-score of -1.5 and a Z-score of 0.3 which is diagnostic of osteopenia. The T- score of the left femoral neck is -2.0 which is diagnostic of osteopenia. IMPRESSION: 1. Osteopenia. There has been a decrease of 0.4% in bone mineral density in the lumbar spine since the prior examination of 08/19/2022. There has been a decrease of 1.6% in bone mineral density in the left femur. 2. FRAX analysis yields a 10-year probability of major osteoporotic fracture of 19.6% and a 10-year probability of hip fracture of 4.7%. Code 87970 Dictating Physician: HAYDEN MACKAY MD Electronically Signed by: HAYDEN MACKAY MD Dic Date/Time: 11/01/23 0759 Sign date/Time: 11/01/23 0805 Procedure Note Hayden Mackay MD - 01/25/2024 [facility] Diagnostic Imaging Department [address] [place] [id number] Patient: CHINMAY ARRINGTON Laura Drake./Age/Sex: 1950 - 72 - F Unit#: [id number] Location/Status: [facility] CLI Mnemonic[facility] Ordering Physician: TELMA OLMSTEAD MD [facility] Dexa Axial Skeleton - 10/31/23 - 1525 Report Status:Signed HISTORY: The patient is a 72-year-old postmenopausal female withclinical concern for metabolic bone disease. The patient has undergone previousright hip replacement surgery. FINDINGS: Dual energy x-ray absorptiometry of the lumbar spine and leftfemur is performed. The mean bone mineral density at L1-L4 is 1.331 gm/cm2 whichis 113% of that of young normals and 137% of that of age matched controls.This yields a T-score of 1.3 and a Z-score of 3.0 and there is therefore noevidence of osteoporosis or osteopenia here. The mean bone mineral density of the left femur is 0.824 gm/cm2 which is82% of that of young normals and 104% of that of age matched controls. Thisyields a T-score of -1.5 and a Z-score of 0.3 which is diagnostic of osteopenia.The T- score of the left femoral neck is -2.0 which is diagnostic ofosteopenia. IMPRESSION: 1. Osteopenia. There has been a decrease of 0.4% in bone mineral densityin the lumbar spine since the prior examination of 08/19/2022. There has claudine decrease of 1.6% in bone mineral density in the left femur. 2. FRAX analysis yields a 10-year probability of major osteoporoticfracture of 19.6% and a 10-year probability of hip fracture of 4.7%. Code 49921 Dictating Physician: HAYDEN MACKAY MD Electronically Signed by: HAYDEN MACKAY MD Dic Date/Time: 11/01/23 0759 Sign date/Time: 11/01/23 0805 Telma Olmstead MD IM BI PROCEDURES Final Resul t * Colonoscopy (05/27/2020) Colonoscopy No Interpretation , Abstracted Anatomical Region Laterality Modality Other us Historical Provider HEALTH MAINTENANCE Final Result from Last 3 Months or Most Recently Relevant to Health Maintenance Insurance [employer] MEDIC[employer] ADVANTAGE MEDICAID - [place] Care Teams Brazer Crawler Torch Relationship Specialty Start Date End Date Telma Olmstead MD [address] [facility] [address] [place], [place] PCP - General 02/27/18
--- OUTSIDE RECORDS SUMMARY | 2024-10-11 09:07 | XMS_ITS | Clinical Summary ---
Author Organization [facility] Address [address] [place] [address] Care Team Providers Care Proposal Engineer Name Role Phone Telma Sutton MD Primary Care Provider Allergies Active Allergy Reactions Criticality Noted Date Comments Amoxicillin 10/28/2016 Codeine 10/28/2016 Meperidine 10/28/2016 Oxycodone-Acetaminophen 10/28/2016 Medications Medication Sig Dispensed Refills Start Date End Date Status latanoprost (XALATAN) 0.005 % ophthalmic solution INSTILL 1 DROP IN EACH EYE AT BEDTIME 11 02/07/2017 Active losartan (COZAAR) 100 MG tablet 0 07/12/2017 Active meclizine (ANTIVERT) 12.5 MG tablet Take 1 tablet (12.5 mg total) by mouth 4 (four) times a day. 1 06/26/2017 Active atorvastatin (LIPITOR) tablet 40 mg Take 2 tablets (80 mg total) by mouth daily. 0 Active METOPROLOL SUCCINATE PO Take 50 mg by mouth daily. 75 MG 0 Active ondansetron (ZOFRAN) 4 MG tablet Take 1 tablet (4 mg total) by mouth every 6 (six) hours as needed. for nausea 20 tablet 0 07/20/2018 Active tamoxifen (NOLVADEX) 20 MG tablet TAKE 1 TABLET BY MOUTH EVERY DAY 30 tablet 0 02/06/2020 Active losartan-hydrochlorot hiazide (HYZAAR) 100-12.5 MG per tablet Take 1 tablet by mouth daily. 0 Active pantoprazole (PROTONIX) 40 MG tablet Take 1 tablet (40 mg total) by mouth every morning on an empty stomach. 0 Active Cqzsymx-Ehgzwdral-Qys chávez D (CALCIUM 1200+D3 PO) Take by mouth. 0 Active losartan (COZAAR) tablet 50 mg Take 1 tablet (50 mg total) by mouth daily. 0 Active hydroCHLOROthiazide (MICROZIDE) 12.5 MG capsule Take 12.5 mg by mouth daily. 0 Active rosuvastatin (CRESTOR) tablet 40 mg Take 1 tablet (40 mg total) by mouth daily. 0 Active Active Problems Problem Noted Date Diagnosed Date Malignant neoplasm of overlapping sites of right breast 05/25/2013 Family History Medical History Relation Name Comments Cancer Father Cancer Paternal Aunt breast Relation Name Status Comments Father (Age 75) Paternal Aunt Social History Tobacco Use Types Packs/Day Years Used Date Smoking Tobacco: Former Smokeless Tobacco: Never Alcohol Use Standard Drinks/Week Comments Yes 0 (1 standard drink = 0.6 oz pur e alcohol) Sex and Gender Information Value Date Recorded Sex Assigned at Not on file Gender Identity Not on file Sexual Orientation Not on file Job Start Date Occupation Industry Not on file Not on file Not on file Last Filed Vital Signs Vital Sign Reading Time Taken Comments Blood Pressure 119/64 06/29/2022 10:40 AM EDT Pulse 78 06/29/2022 10:40 AM EDT Temperature 36.8 C (98.3 F) 06/29/2022 10:40 AM EDT Respiratory Rate - - Oxygen Saturation 98% 06/29/2022 10:40 AM EDT Inhaled Oxygen Concentration - - Weight 67.1 kg (148 lb) 06/29/2022 10:40 AM EDT Height 152.4 cm (5') 06/29/2022 10:40 AM EDT Body Mass Index 28.9 06/29/2022 10:40 AM EDT Plan of Treatment Health Maintenance Due Date Last Done Comments Hepatitis C Screening 1950 COVID-19 Vaccine (#1) 1953 Pneumococcal Vaccine (1 of 2 - PCV) 1954 Depression Screening 1960 Preventative Health Evaluation 1966 DTap / Tdap / Td (1 - Tdap) 12/10/1967 Shingrix-Zoster Vaccine (1 of 2) 12/10/1967 Colon Cancer Screening (Colonoscopy) 1993 Fall Risk Assessment 2013 Osteoporosis Screening (DEXA Scan) 2013 RSV Adult > 60+ Yrs or Pregn ant (1 - 1-dose 75+ series) 12/10/2023 Influenza Vaccine (Season Ended) 2024 Hepatitis B Vaccines Aged Out No long er eligible based on patient's age to complete this topic RSV Ped < 20 months Aged Out No longe r eligible based on patient's age to complete this topic Care Teams Proposal Engineer Relationship Specialty Start Date End Date Telma Sutton MD [address] [phone] PCP - General Internal Medicine 07/11/17
--- OUTSIDE RECORDS SUMMARY | 2024-10-11 09:09 | XMS_ITS | Patient Health Record ---
Author Organization [facility] Address [address] [place] [address] Care Team Providers Care Applications Instructor Name Role Phone Telma Sutton Primary Care Provider Unavailab Xu Macdonald Unavailable [phone] NONE, NONE Unavailable Unavailable Allergies Allergen (clinical drug ingredient) Drug/Non Drug Allergy documented on EMR Reaction Allergy Type Onset Date Status acetaminophen / oxycodone Percocet Unknown Drug Allergy Active morphine Duramorph Unknown Drug Allergy Active Codeine Phosphate Unknown Drug Allergy Active Reason For Referral No Information Medications Medication SIG (Take, Route, Frequency, Duration) Notes Start Date End Date Status Zofran 4 MG 1 tablet Orally Q 6 hours prn nausea for 30 day(s) 08/06/2016 Active Losartan Potassium-HCTZ 100-25 MG 1 tablet Orally Once a day Active Omeprazole 20 MG 1 capsule Orally prn Active Naprosyn 250 MG 1 tablet Orally prn Active Pravastatin Sodium 10 MG 1 tablet Orally Once a day Active Aspir-81 81 MG 1 tablet Orally Once a day Active Letrozole 2.5 MG 1 tablet Orally Once a day Active Immunizations Vaccine Route Administration Date Status Comme nts Flu vaccine no Preserv 3 and > Unknown 01/14/2015 Admin istered Problems Problem Type SNOMED Code ICD Code Onset Dates Problem Status W/U Status Risk Notes Problem [id number] Epigastric pain (R10.13) Active confirmed Problem [id number] Encounter for screening for malignant neoplasm of colon (Z12.11) Active confirmed Problem Screening for malignant neoplasm of rectum ([id number]) Encounter for screening for malignant neoplasm of rectum (Z12.12) Active confirmed Problem 917089973 Gallstones (K80.20) Active confirmed Problem 450468209 GERD (gastroesophage al reflux disease) (K21.9) Active confirmed Plan Of Treatment Future Test Test Name Order Date COLONOSCOPY 01/05/2013 Insurance Providers Payer Name Payer Address Payer Phone Subscriber Number Group Number Insured Name Patient Relationship to Insured Coverage Start Date Coverage End Date MEDICARE OF [place] [address] [place] [id number] CHINMAY MADSEN Self - patient is the insured MEDICAID OF [facility] [address] [place] [address] [id number] CHINMAY MADSEN Self - patient is the insured Medical (General) History Medical History History ICD Code EGD 01/2008 with a small HH-no sig esoph agitis Colonoscopy in 01/2008 with a small tubular adenoma; negative colonoscopy in 2002 and 01/2013 HTN Gallstones-U/S with a 2cm st one--normal HIDA--has seen Dr. Royal-has not had a CCY Glaucoma Cardiac catheterization in the --n egative Kidney stones Breast cancer--2012--right side--lumpect keyon with lymph node mets--XRT Denies SC,DM,CVA,Lung disease,renal dise ase Surgical History Surgery Date(Month/Year) Wrist ganglion Lumpectomy, right breast as above
[2024-10-11 09:22] LABS: MANUAL DIFF FLAG NO
[2024-10-11 09:40] LABS: Hematocrit 37.2 % (37.0-47.0); Hemoglobin 12.8 g/dl (12.0-16.0); Imm Gran Abs Auto 0.01 X10*3/uL (0.00-0.03); Imm Gran Pct Auto 0.3 % (0.0-0.4); Lymphocytes Absolute Auto 1.4 X10*3/uL (1.2-4.9); Mean Corpuscular HGB Conc 34.4 g/dl (31.0-35.0); Mean Corpuscular Hemoglobin 31.4 pg (27.0-33.0); Mean Corpuscular Volume 91.2 fL (80.0-98.0); NRBC Abs Auto 0.000 X10*3/uL (0.0-0.012); NRBC Pct Auto 0.0 /100WBC (0.0-0.2); Platelet Count 160 X10*3/uL (160-400); Red Blood Count 4.08 X10*6/uL (4.20-5.50); White Blood Count 3.7 X10*3/uL (4.8-10.8)
[2024-10-11 10:25] LABS: Alanine Aminotransferase 14 U/L (0-31); Albumin Level 4.2 g/dL (3.5-5.0); Alkaline Phosphatase 83 U/L (39-117); Anion Gap 9 (12-20); Aspartate Amino Transferase 26 U/L (5-31); Blood Urea Nitrogen 21 mg/dL (9-16); Calcium 8.9 mg/dL (8.4-10.2); Carbon Dioxide 28 mmol/L (22-29); Chloride 107 mmol/L (96-108); Estimated Glomerular Filt Rate > 60; Potassium 4.2 mmol/L (3.3-5.1); Sodium 140 mmol/L (135-145); Total Protein 6.8 g/dL (6.5-8.0)
== END 2024-10-11 08:56 | disposition home or self-care (01) ==
LOC: HO.LAB 08:55
PROVIDERS: PCP Internal Medicine; Visit Provider Internal Medicine
DX: I10 Essential (primary) hypertension (principal); E78.00 Pure hypercholesterolemia, unspecified; Z85.3 Personal history of malignant neoplasm of breast; Z86.0101 Personal history of adenomatous and serrated colon polyps
CPT/HCPCS: 36415; 80053; 82306; 85025

== ENCOUNTER 2025-01-16 11:35 | Outpatient (REF) | payer OTHER, SELFPAY ==
[2025-01-16 12:10] LABS: MANUAL DIFF FLAG NO
[2025-01-16 12:17] LABS: Hematocrit 40.4 % (37.0-47.0); Hemoglobin 14.0 g/dl (12.0-16.0); Imm Gran Abs Auto 0.01 X10*3/uL (0.00-0.03); Imm Gran Pct Auto 0.2 % (0.0-0.4); Lymphocytes Absolute Auto 1.5 X10*3/uL (1.2-4.9); Mean Corpuscular HGB Conc 34.7 g/dl (31.0-35.0); Mean Corpuscular Hemoglobin 31.9 pg (27.0-33.0); Mean Corpuscular Volume 92.0 fL (80.0-98.0); NRBC Abs Auto 0.000 X10*3/uL (0.0-0.012); NRBC Pct Auto 0.0 /100WBC (0.0-0.2); Platelet Count 174 X10*3/uL (160-400); Red Blood Count 4.39 X10*6/uL (4.20-5.50); White Blood Count 4.8 X10*3/uL (4.8-10.8)
[2025-01-16 13:01] LABS: Alanine Aminotransferase 19 U/L (0-31); Albumin Level 4.5 g/dL (3.5-5.0); Alkaline Phosphatase 91 U/L (39-117); Anion Gap 9 (12-20); Aspartate Amino Transferase 36 U/L (5-31); Blood Urea Nitrogen 19 mg/dL (9-16); Calcium 9.5 mg/dL (8.4-10.2); Carbon Dioxide 29 mmol/L (22-29); Chloride 110 mmol/L (96-108); Cholesterol 211 mg/dL (<200); Estimated Glomerular Filt Rate > 60; HDL Cholesterol 75 mg/dL (>40); Potassium 3.8 mmol/L (3.3-5.1); Sodium 144 mmol/L (135-145); Total Protein 7.3 g/dL (6.5-8.0); Triglycerides 61 mg/dL (<150)
== END 2025-01-16 11:36 | disposition home or self-care (01) ==
LOC: HO.10HDL 11:35
PROVIDERS: Visit Provider Internal Medicine
DX: E78.00 Pure hypercholesterolemia, unspecified (principal); I10 Essential (primary) hypertension; Z85.3 Personal history of malignant neoplasm of breast; Z86.0101 Personal history of adenomatous and serrated colon polyps
CPT/HCPCS: 36415; 80053; 80061; 82306; 85025

== ENCOUNTER 2025-02-13 14:30 | Outpatient (AMB) | payer OTHER, MEDICAID, SELFPAY ==
--- NOTE | 2025-02-13 14:41 | A.OFFVIS_ITS ---
Vital Signs 02/13/25 14:42 Height 5 ft Weight 147 lb 11.355 oz BMI 28.8 BP 134/70 Blood Pressure Location Rt brachial Position Sitting Pulse 72 Pulse Source Pulse Oximeter Pulse Oximetry (%) 96 Oxygen Delivery Method Room Air Intake Visit Reasons: Hypoglycemia Intake Note: NEW Patient presents here today to establish treatment for Hypoglycemia: Random Glucose: 84 mg/dL, 15:19 PM. Knife Glazer Required: No Accompanied by: Self / Same As Patient Allergies acetaminophen (From PERCOCET) Allergy (Unknown, Unverified 02/13/25 14:43) NAUSEA & VOMITING codeine (CODEINE) Allergy (Unknown, Unverified 02/13/25 14:43) NAUSEA & VOMITING, vomiting meperidine (From DEMEROL) Allergy (Unknown, Unverified 02/13/25 14:43) NAUSEA & VOMITING oxycodone (From PERCOCET) Allergy (Unknown, Unverified 02/13/25 14:43) NAUSEA & VOMITING Medication List - Last Reconciled 02/13/25 by Ammy Gutierrez MD clindamycin HCl 600 mg PO PRN hydrochlorothiazide 25 mg PO DAILY lidocaine HCl 2% (Lidocaine Viscous) 15 mL PO Q3H PRN losartan 50 mg PO DAILY metoprolol succinate ER mg PO naproxen 500 mg PO BID pantoprazole 40 mg PO DAILY rosuvastatin 40 mg PO DAILY scopolamine base 1 patch topical Q3D HPI Comments Details: The patient is a 74-year-old woman with a history of nondiabetic hypoglycemia, first diagnosed in the 1970s after a 3-hour glucose tolerance test revealed a glucose dave of 52 mg/dL with concurrent symptoms. A subsequent 5-hour GTT showed a further drop to 39 mg/dL, again with significant hypoglycemic symptoms including diaphoresis, shakiness, visual changes, and near-syncope. She reports that her symptoms are most pronounced in the morning or after prolonged fasting, and include sweating, tremor, cold extremities, confusion, slurred speech, difficulty concentrating, and sometimes loss of balance or near-fainting. These symptoms reliably resolve with carbohydrate intake. She has never received a clear explanation for the etiology of her hypoglycemia. She recalls being told her insulin overreacts, but was told she did not have a tumor, though no formal imaging or biochemical workup for insulinoma or other causes was performed. She denies any history of exogenous insulin or sulfonylurea use, and has not had bariatric or major GI surgery. She has not been monitoring her blood glucose at home, relying instead on symptoms, and has not seen a stamp analyst. Her current management consists of frequent small meals and snacks, with an emphasis on protein, but she continues to experience breakthrough episodes. She reports persistent weight gain, likely due to frequent eating, and describes a sensation of constant hunger. She is physically active, attending the [facility] three times weekly for swimming and aquatic exercise. She also has a history of hypertension and a prior episode of ventricular tachycardia. She expresses frustration with the impact of her symptoms on daily life, including cognitive impairment, fatigue, and difficulty with weight management. She is interested in a more definitive diagnosis and management plan. Review of Systems General: Fatigue, weight gain, no fevers or night sweats. HEENT: No visual changes outside of hypoglycemic episodes, no headaches except during episodes. Cardiac: History of hypertension, prior ventricular tachycardia, palpitations during hypoglycemia. Respiratory: No shortness of breath. GI: No nausea, vomiting, or abdominal pain. Appetite increased; frequent hunger. : No polyuria or polydipsia. Neuro: Confusion, slurred speech, difficulty concentrating, near-syncope, loss of balance during hypoglycemia. Endocrine: No known thyroid disease. No history of diabetes. Musculoskeletal: Weakness during hypoglycemic episodes. Skin: Diaphoresis during episodes. Psych: No depression or anxiety reported, but frustration with symptoms and impact on quality of life. Physical exam General: Well appearing. NAD. Not Cushingoid or Acromegalic CV: RRR, no murmur. No edema. Resp:Lungs clear to auscultation bilaterally Abdomen: Soft, nontender. nondistended Extremities/Neuro: No weakness or tremor of outstretched hands Labs Lipid Panel (01/16/2025) Triglycerides: 61 mg/dL Cholesterol: 211 mg/dL LDL Cholesterol Calculated: 124 mg/dL HDL Cholesterol: 75 mg/dL Comprehensive Met. Panel (01/16/2025) Sodium: 144 mmol/L Potassium: 3.8 mmol/L Blood Urea Nitrogen: 19 mg/dL Creatinine: 0.78 mg/dL Estimated Glomerular Filtration Rate: >60 Glucose Random: 103 mg/dL Calcium: 9.5 mg/dL Bilirubin Total: 0.8 mg/dL Aspartate Aminotransferase: 36 U/L Alanine Aminotransferase: 19 U/L Total Protein: 7.3 g/dL Albumin Level: 4.5 g/dL Alkaline Phosphatase: 91 U/L Comprehensive Met. Panel (10/11/2024): Sodium: 140 mmol/L Potassium: 4.2 mmol/L Chloride: 107 mmol/L Carbon Dioxide: 28 mmol/L Anion Gap: 9 Blood Urea Nitrogen: 21 mg/dL Creatinine: 0.67 mg/dL Estimated Glomerular Filtration Rate: >60 Glucose Random: 86 mg/dL Calcium: 8.9 mg/dL Bilirubin Total: 0.6 mg/dL Aspartate Aminotransferase: 26 U/L Alanine Aminotransferase: 14 U/L Total Protein: 6.8 g/dL Albumin Level: 4.2 g/dL Alkaline Phosphatase: 83 U/L Vitamin D 25-OH Total (10/11/2024): Vitamin D 25-OH Total: 35.7 ng/mL PFSH Medical History Arthritis Hx of glaucoma Hx of gastroesophageal reflux (GERD) Hx of myocardial infarction Hx of essential hypertension History of cancer of right breast History of fracture of right hip History of fracture of right ankle History of right shoulder fracture Hx of hypoglycemia History of mammogram Surgical History History of lumpectomy of left breast History of right knee surgery Hx of breast biopsy History of total right knee replacement History of cataract surgery Hx of colonoscopy Family History Father Cancer Colon polyp Mother HTN (hypertension) Arthritis Acute rheumatic arthritis Ankylosing spondylitis Malignant melanoma Sister Diabetes mellitus Social History Alcohol intake: current Alcohol intake frequency: does not drink Patient Tobacco Use Status: Never used Tobacco Physical Exam Vital Signs: Last Vital Signs Pulse 72 02/13/25 14:42 BP 134/70 02/13/25 14:42 Pulse Ox 96 02/13/25 14:42 Oxygen Delivery Method Room Air 02/13/25 14:42 BMI result Body Mass Index 28.8 Results Reviewed Results Reviewed: Laboratory Last Values Glucose (Clinic) 84 mg/dL (60-115) 02/13/25 15:19 Assessment & Plan Assessment & Plan (1) Hypoglycemia: Code(s): E16.2 - Hypoglycemia, unspecified Category: Medical Plan: This is a 74-year-old woman with a decades-long history of documented hypoglycemia (dave glucose 39?52 mg/dL on prior GTTs), 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 The etiology of her hypoglycemia remains unclear, as she has never undergone a formal evaluation for endogenous hyperinsulinemic hypoglycemia (e.g., insulinoma, non-insulinoma pancreatogenous hypoglycemia syndrome, or other causes). She denies exogenous insulin or sulfonylurea use. There is no history of bariatric surgery or major GI surgery. She has not had imaging or biochemical workup for insulinoma or other neuroendocrine tumors. She has not had a supervised 72-hour fast or critical sample collection during a spontaneous episode. Her symptoms are frequent and disabling, with significant impact on quality of life and safety (notably, episodes while driving). She has not had formal dietary counseling. She is not currently using any home glucose monitoring, whic h limits the ability to correlate symptoms with documented hypoglycemia. Given the chronicity, severity, and lack of clear etiology, further evaluation is warranted to confirm the diagnosis, characterize the biochemical profile during hypoglycemia, and rule out insulinoma or other causes of endogenous hyperinsulinemic hypoglycemia. Plan Schedule a supervised fasting study (outpatient, given current facility limitations) to capture a critical sample during a spontaneous hypoglycemic episode. Instruct patient to present fasting and remain until symptomatic or until hypoglycemia is documented. During hypoglycemic episode, obtain critical labs: plasma glucose, insulin, C- peptide, proinsulin, beta-hydroxybutyrate, cortisol, and sulfonylurea/meglitinide screen. If endogenous hyperinsulinemic hypoglycemia is confirmed, proceed with localization studies (CT/MRI pancreas, consider PET/CT with 68Ga-DOTATATE if available). Refer to stamp analyst for individualized dietary counseling focused on h ypoglycemia management (frequent small meals, balanced macronutrients, avoidance of high glycemic index foods). Educate on the importance of combining carbohydrates with protein/fat to prevent rapid glucose fluctuations. Advise patient to avoid driving or operating heavy machinery if symptomatic or if blood glucose is low. Encourage having a family member accompany her to fasting studies and to keep fast-acting carbohydrates available at all times. If initial evaluation is inconclusive or if facility limitations preclude adequate testing, consider referral to a tertiary center with inpatient fasting protocols and advanced imaging capabilities. Plan 70 minutes spent reviewing previous records, labs, imaging, education and documenting in the chart Orders: Orders Chromogranin A 02/13/25 E16.2 - Hypoglycemia, unspecified C Peptide 02/13/25 E16.2 - Hypoglycemia, unspecified Free T4 (Free Thyroxine) 02/13/25 E16.2 - Hypoglycemia, unspecified Insulin 02/13/25 E16.2 - Hypoglycemia, unspecified Adrenocorticotropic Hormone 02/13/25 E16.2 - Hypoglycemia, unspecified Basic Metabolic Panel Fasting 02/13/25 E16.2 - Hypoglycemia, unspecified Cortisol Random 02/13/25 E16.2 - Hypoglycemia, unspecified Insulin Auto Antibody 02/13/25 E16.2 - Hypoglycemia, unspecified Insulin Growth Factor 2 02/13/25 E16.2 - Hypoglycemia, unspecified Insulinoma associated 2 aatb 02/13/25 E16.2 - Hypoglycemia, unspecified Proinsulin 02/13/25 E16.2 - Hypoglycemia, unspecified Thyroid Stimulating Hormone 02/13/25 E16.2 - Hypoglycemia, unspecified Hypoglycemic Panel 02/13/25 E16.2 - Hypoglycemia, unspecified Referrals Nutrition/Dietitian Referral E16.2 - Hypoglycemia, unspecified Coding Level of Care Code New Pt Level 5 (37080) Complex EM visit Add On G2211 Diagnoses Hypoglycemia E16.2
[2025-02-13 14:42] VITALS: BP 134/70; PULSE 72; O2SAT 96; BMI 28.8
[2025-02-13 15:22] LABS: Glucose, Whole Blood 84 mg/dL (60-115)
--- OUTSIDE RECORDS SUMMARY | 2025-02-13 17:39 | XMS_ITS | Clinical Summary ---
Author Organization [facility] Address [address] [place] [address] Care Team Providers Care Geology Scientist Name Role Phone Telma Sutton MD Primary [...] morning on an empty stomach. 0 Active Rhjobzg-Ykwkzewok-Gmt chávez D (CALCIUM 1200+D3 PO) Take by [...] 12/10/1967 Shingrix-Zoster Vaccine (1 of 2) 12/10/1967 Fall Risk Assessment 2013 Osteoporosis Screening (DEXA Scan) 2013 RSV Adult > 60+ Yrs or Pregn ant (1 - 1-dose 75+ series) 12/10/2023 Influenza Vaccine (#1) 2024 Hepatitis B Vaccines Aged Out No long er eligible based on patient's age to complete this topic RSV Ped < 20 months Aged Out No longe r eligible based on patient's age to complete this topic Care Teams Geology Scientist Relationship Specialty Start Date End Date Telma Sutton MD [address] [phone] PCP - General Internal Medicine 07/11/17
--- OUTSIDE RECORDS SUMMARY | 2025-02-13 17:40 | XMS_ITS | Data Portability ---
Author Organization [facility], [facility] Address [address] [place] [address] Care Team Providers Care Lip Reading Teacher Name Role Phone LORIE OLMSTEAD Primary Care Provider Assessment Encounter Date Assessment Date Assessment LastModified by Organization Details LastModified Time 06/20/2024 06/20/2024 Assessment: Patient continues to ambulate with antalgic gait pattern and decreased stance time and TKE on L LE. Patient was limited with CKC exercises secondary to R knee pain. She fatigued quickly with SLR and required frequent breaks. Plan: Continue POC Not available 06/20/2024 14:34:28 06/22/2024 06/22/2024 Assessment: Patient continues to ambulate with antalgic gait pattern and decreased stance time and TKE on L LE. Patient presents c improved ellen to ther ex today. No pain c step ups. Good ellen to clamshells in seated. No sig dizzy episodes transitioning from leg press today. Plan: Continue POC Not available 06/22/2024 14:59:05 06/29/2024 06/29/2024 Assessment: Patient continues to ambulate with antalgic gait pattern. Patient able to complete full session w/o pain, but fatigued quickly today. No sig dizzy episodes transitioning from leg press today. Plan: Continue POC. Not available 06/29/2024 15:18:46 07/04/2024 07/04/2024 Assessment: Patient continues to ambulate with antalgic gait pattern. Presents c dizzy episodes transitioning from seated positioning today, rx modified to avoid supine positioning. Responded well to resistance progressions as charted, but fatigued quickly throughout today. Mod challenged iban bautista today. Plan: Continue POC. Not available 07/04/2024 14:43:08 07/06/2024 07/06/2024 Assessment: Patient once again dealing with issues related to dizziness and tremors that seem related to positional changes. She reports eating a good lunch only an hour or two ago before her treatment. Instructed patient to reach out to her PCP because this seems like a consistent issue and she agrees. In regards to her knee she is I with her HEP and met most PT goals. She still has pain at times but realizes that her knee still has OA and will not be perfect. She agrees to transition to an HEP at this time and will f/u prn with questions and concerns. Plan: Continue POC. Not available 07/06/2024 14:39:00 Plan of Treatment Reminders Order Date Submit Date Provider Last Modified By Organization Details Last Modified Time Details Appointments None record ed. Lab None record ed. Referral None record ed. Procedures None record ed. Surgeries None record ed. Imaging None record ed. Medication Orders None record ed. Patient TargetsNo targets recorded. Patient InstructionsNo instructions recorded. Reason for Referral None Reported. Problems Name Problem SNOMED Code Status Onset Date Resolution Date Notes Provider Name and Address Organization Details Recorded Time Idiopathi c osteoarth ritis 740474211 Active 2019 Problem Code: M17.11; Problem Code Type: ICD-10; Status: 'A'; Not Available [facility] 4 11:58:53 Osteoarth ritis of left knee joint 765890242748 109 Active 2023 Juan Carlos Hammer PA-C [address], [facility] [place], [address] , [facility] - [facility] 4 10:06:28 Pain of knee region 9183213150 Active 2023 VINI moran [place] - [facility] 4 17:54:11 Problem Notes None recorded. Procedures Surgical History Date Name Laterality Status Provider Name and Address Organization Details Recorded Time 5 75166 Therapeutic Exercise (1:1) completed Derrick Catjakis, DPT [address], [place], [address], [facility] 07/06/2024 14:36:07 5 46215: Hot or Cold Pack completed Derrick Deleon, DPT [address], [place], [address], [facility] 07/05/2024 12:24:47 5 94919 Therapeutic Exercise (1:1) completed Debbi Tilley, GERMAN TUTOR [address], [place], [address], [facility] 07/04/2024 15:14:11 5 74854: Hot or Cold Pack completed Debbi Tilley, GERMAN TUTOR [address], [place], [address], [facility] 07/03/2024 14:39:32 5 95284 Therapeutic Exercise (1:1) completed Debbi Tilley, GERMAN TUTOR [address], [place], [address], [facility] - [facility] 06/29/2024 15:16:28 5 99005: Hot or Cold Pack completed Debbi Tilley, GERMAN TUTOR [address], [place], [address], [facility] 06/29/2024 08:46:45 5 53285 Therapeutic Exercise (1:1) cancelled Debbi Tilley, GERMAN TUTOR [address], [place], [address], [facility] 06/25/2024 15:37:22 5 29802: Hot or Cold Pack cancelled Debbi Tilley, GERMAN TUTOR [address], [place], [address], [facility] 06/25/2024 15:37:22 5 74454 Therapeutic Exercise (1:1) completed Debbi Tilley PTA [address], [place], [address], [facility] 06/22/2024 15:01:21 5 77146: Hot or Cold Pack completed Debbi Tilley PTA [address], [place], [address], [facility] 06/21/2024 14:25:01 5 70834 Therapeutic Exercise (1:1) completed SHANDRA MartinT [address], [place], [address], [facility] 06/20/2024 08:08:27 5 67164: Hot or Cold Pack completed Derrick Deleon DPT [address], [place], [address], [facility] 06/20/2024 08:08:27 5 78760 Therapeutic Exercise (1:1) completed Debbi Tilley PTA [address], [place], [address], [facility] 06/14/2024 10:49:17 5 47374: Hot or Cold Pack completed Debbi Tilley PTA [address], [place], [address], [facility] 06/14/2024 10:49:17 5 12605 Therapeutic Exercise (1:1) completed Derrick Deleon DPT [address], [place], [address], [facility] 06/13/2024 15:43:21 5 20591: Hot or Cold Pack completed SHANDRA MartinT [address], [place], [address], [facility] 06/13/2024 15:43:19 5 55585 Therapeutic Exercise (1:1) completed Debbi Zubenko, GERMAN TUTOR [address], [place], [address], [facility] 06/08/2024 15:36:26 5 27272: Hot or Cold Pack completed Debbi Tilley, GERMAN TUTOR [address], [place], [address], [facility] 06/08/2024 15:36:23 5 93502: Manual therapy completed Debbi Tilley, GERMAN TUTOR [address], [place], [address], [facility] 06/08/2024 15:25:43 5 54060 Therapeutic Exercise (1:1) completed Derrick Deleon DPT [address], [place], [address], [facility] 06/04/2024 14:45:14 5 89752: Hot or Cold Pack completed Derrick Deleon DPT [address], [place], [address], [facility] 06/04/2024 08:05:39 5 64731: Manual therapy completed Derrick Deleon DPT [address], [place], [address], [facility] 06/04/2024 14:45:09 5 17625 Therapeutic Exercise (1:1) completed Derrick Deleon DPT [address], [place], [address], [facility] 05/30/2024 14:18:14 78863: Hot or Cold Pack completed Derrick Deleon DPT [address], [place], [address], [facility] 05/30/2024 14:43:48 5 13306: Manual therapy completed Derrick Catjakis, DPT [address], [place], [address], [facility] 05/30/2024 14:43:41 5 21205 Therapeutic Exercise (1:1) completed Derrick Deleon, DPT [address], [place], [address], [facility] 05/28/2024 11:09:24 5 69112: Low complexity PT Eval completed Derrick Deleon, DPT [address], [place], [address], [facility] 05/28/2024 11:09:31 4 JZKNEE INJ completed Juan Carlos Hammer PA-C [address], [place], [address], [facility] 02/03/2024 10:06:09 Imaging Results None recorded. Procedure Notes None recorded. Medical Equipment None Reported. Allergies Allergen ID Allergen Name Allergen Category Reaction Reaction Severity Criticality Documentation Date Start Date Code Code System Note Provider Name and Address Organization Details Recorded Time 512631 oxycodone medicatio n Not available Not available Not available 10/20/2023 7804 RxNorm ARIANA MARMOLEJO [facility] 4 11:02:50 36498 Demerol medicatio n Not available Not available Not available 06/13/20232020 09933 1 RxNorm Not Available [facility] 4 15:00:21 84586 morphine sulfate medicatio n Not available Not available Not available 06/13/20232020 02105 RxNorm Not Available [facility] 4 15:00:22 81044 acetamino phen / oxycodone medicatio n Not available Not available Not available 06/13/20232017 64523 3 RxNorm Not Available [facility] 4 15:00:22 72368 codeine medicatio n Not available Not available Not available 06/13/20232017 2670 RxNorm Not Available [facility] 4 15:00:22 37167 Product containin g penicilli n (product) medicatio n Not available Not available Not available 06/13/20232020 85654 8001 SNOMED Not Available [facility] 15:00:22 Medications Name Sig Start Date Stop Date Status Note LastModified by Organization Details LastModified Time losartan 50 mg tablet TAKE 1 TABLET BY MOUTH EVERY DAY active Not Available Not Available No t Available celecoxib 200 mg capsule TAKE 1 CAPSULE BY MOUTH EVERY DAY 07/06 completed Not Available Not Available Not Available clindamycin HCl 300 mg capsule TAKE 2 CAPSULES BY MOUTH 30 MIN PRIOR TO DENTAL PROCEDURE active Not Available Not Available No t Available Lidocaine Viscous 2 % mucosal solution Take 15 mL every 3 hours by oral route as needed. active Not Available Not Available No t Available metoprolol succinate ER 50 mg tablet,exte nded release 24 hr TAKE 1 AND 1/2 TABLETS BY MOUTH DAILY active Not Available Not Available No t Available meclizine 12.5 mg tablet active Not Available Not Available Not Available tramadol 50 mg tablet TAKE 1-2 TABLETS EVERY 6 HOURS NEEDED. 3 DAY RX. active Not Available Not Available No t Available acetaminoph en 500 mg tablet TAKE 1 TABLET BY MOUTH EVERY 6 HOURS 07/06 completed Not Available Not Available Not Available ketorolac 0.5 % eye drops INSTILL 1 DROP 3 TIMES A DAY INTO OPERATIVE EYE FOR 3 DAYS AFTER LASER 03/15 completed Not Available Not Available Not Available cephalexin 500 mg capsule TAKE 1 CAPSULE BY MOUTH 3 TIMES DAILY 10/19 completed Not Available Not Available Not Available pantoprazol e 40 mg tablet,myah yed release TAKE 1 TABLET BY MOUTH EVERY DAY active Not Available Not Available No t Available docusate sodium 100 mg capsule TAKE 1 CAPSULE BY MOUTH TWICE A DAY DIRECTED *START AFTER SURGERY* 07/06 completed Not Available Not Available Not Available hydrochloro thiazide 25 mg tablet TAKE 1 TABLET BY MOUTH EVERY DAY active Not Available Not Available No t Available gabapentin 100 mg capsule TAKE 2 CAPSULES BY MOUTH TWICE A DAY FOR 14 DAYS 07/06 completed Not Available Not Available Not Available scopolamine 1 mg over 3 days transdermal patch APPLY 1 PATCH TO SKIN EVERY 72 HOURS active Not Available Not Available No t Available doxycycline hyclate 100 mg tablet TAKE 1 TABLET BY MOUTH 1 HOUR PRIOR TO APPOINTME NT 10/19 completed Not Available Not Available Not Available naproxen 500 mg tablet TAKE 1 TABLET BY MOUTH TWICE A DAY active Not Available Not Available No t Available azithromyci n 500 mg tablet TAKE 1 TABLET BY MOUTH 1 HOUR BEFORE 10/19 completed Not Available Not Available Not Available rosuvastati n 40 mg tablet TAKE 1 TABLET BY MOUTH EVERY DAY. active Not Available Not Available No t Available chlorhexidi ne gluconate 0.12 % mouthwash RINSE 15ML'S BY MOUTH TWICE DAILY AFTER BRUSHING 07/06 completed Not Available Not Available Not Available Avalide UUD 07/24 completed Statu s: 'Disc ontin ued'; Not Available Not Available Not Available Purelax 17 gram/dose oral powder DISSOLVE 1 CAPFUL (17 GRAMS) IN BEVERAGE & DRINK DAILY AT BEDTIME 07/06 completed Not Available Not Available Not Available Vitals None Recorded Social History None recorded. Functional Status None recorded. Mental Status None recorded. Family History Nothing Reported. Medical History No medical history recorded. Gynecological HistoryNo gynecological history recorded. Obstetrics History GPAL:G 0 P 0 0 0 0 Past Encounters Encounter ID Performer Location Encounter Start Date Encounter Closed Date Diagnosis/Indication Diagnosis SNOMED-CT Code Diagnosis ICD10 Code Diagnosis IMO Codes Diagnosis Note [id number] MD Jewell Hartley [address] floor [address] [place] [address] 07/07/2023 15:19:01 07/29/2023 15:20:09 History of right total knee replacement 4373960612 256906 Z96.651 Edema of l ower extremity 107097686 R60.0 [id number] MOUNIKA Fortune [address] [place] [address] 10/20/2023 10:52:38 10/20/2023 11:18:09 Osteoarthritis of knee 395049222 M17.9 [id number] MOUNIKA Martin 3rd floor [address] [place] [address] 02/03/2024 09:35:33 02/28/2024 10:40:32 History of right total knee replacement 6392223646 705140 Z96.651 66748523 Osteoarthr itis of left knee joint 5924849392 81322 M17.12 [id number] MD Edmar [facility] [address] [place] [address] 03/15/2024 15:32:36 04/12/2024 10:03:10 Osteoarthritis of left knee joint 4372032286 09840 M17.12 [id number] MD SILVER [facility] [address] [place] [address] 05/02/2024 13:27:52 05/11/2024 07:07:23 Osteoarthritis of left knee joint 4752644121 63340 M17.12 19248392 Pain of knee region 1003 727583 M25.562 [id number] MOUNIKA Dunn [facility] [address] [place] [address] 05/22/2024 13:30:24 06/07/2024 15:39:20 History of operative procedure on knee 413935122 Z98.890 [id number] ROLANDA Martin [facility] [address] [place] [address] 05/28/2024 14:12:13 05/28/2024 15:10:50 Osteoarthritis of left knee joint 9448360990 91836 M17.12 [id number] [id number] ROLANDA Martin PT [address] [place] [address] 05/30/2024 14:01:28 05/30/2024 15:10:11 Osteoarthritis of left knee joint 7388910692 53997 M17.12 61961354 [id number] ROLANDA Martin PT [address] [place] [address] 06/04/2024 14:34:29 06/04/2024 15:31:30 Osteoarthritis of left knee joint 7926316469 01375 M17.12 [id number] Debbi Tilley, GERMAN TUTOR [facility] [address] [place] [address] 06/08/2024 14:55:11 06/08/2024 16:13:42 Osteoarthritis of left knee joint 4298903786 23522 M17.12 [id number] Derrick Deleon, DPT [facility] [address] [place] [address] 06/13/2024 14:32:39 06/13/2024 15:53:24 Osteoarthritis of left knee joint 1005670536 92397 M17.12 [id number] [id number] Debbi Tilley GERMAN TUTOR [facility] [address] [place] [address] 06/15/2024 14:23:04 06/15/2024 15:22:38 Osteoarthritis of left knee joint 1280542526 81059 M17.12 35773416 [id number] Derrick Deleon, DPT [facility] [address] [place] [address] 06/20/2024 14:10:19 06/20/2024 14:38:35 Osteoarthritis of left knee joint 1292403442 09479 M17.12 [id number] [id number] Debbi Tilley GERMAN TUTOR [facility] [address] [place] [address] 06/22/2024 13:38:12 06/22/2024 15:03:11 Osteoarthritis of left knee joint 7801347017 74425 M17.12 [id number] Debbi Tilley GERMAN TUTOR [facility] [address] [place] [address] 06/29/2024 14:04:38 06/29/2024 15:21:46 Osteoarthritis of left knee joint 0691801770 20057 M17.12 [id number] [id number] Debbi Tilley GERMAN TUTOR [facility] [address] [place] [address] 07/04/2024 13:57:30 07/04/2024 15:14:58 Osteoarthritis of left knee joint 1003051266 49545 M17.12 93372632 [id number] ROLANDA Martin [facility] [address] [place] [address] 07/06/2024 14:39:17 07/06/2024 14:44:35 Osteoarthritis of left knee joint 3902175539 29132 M17.12 [id number] Health Concerns Section Related Observation LastModified by Organization Detai ls LastModified Time None Recorded Concern Status LastModified by Organization Details LastModified Time None Recorded Advance Directives Directive None Recorded Payers Insurance Date Sequence Insurance Name Policy Number Policy Perez Covered Member ID Perez Member ID Guarantor Name 07/09/2024 1 [facility] [employer] - SENIOR PLAN (MEDICARE REPLACEMENT/ ADVANTAGE - HMO) Nilam Arrington [id number] Nilam Arrington Notes Date Note Type Note Provider Name and Address Organization Details Recorded Time 06/20/2024 text/html Patient states the pain is around 3-4/10 and the R knee has been acting up too. Derrick Deleon DPT [address], [place], [address], [facility] 06/20/2024 14:34:39 06/22/2024 text/html Patient states the pain is around 2/10 today, feels stiff after sitting for 20 minutes and needs to walk around to loosen up. Debbi Tilley GERMAN TUTOR [address], [place], [address], [facility] 06/22/2024 15:02:47 06/29/2024 text/html Patient states the pain is around 0-2/10 today, feels that her knee is unsteady. It's like my knee moves when I walk. 5min late Debbi Tilley, GERMAN TUTOR [address], [place], [address], [facility] 06/29/2024 15:21:24 07/04/2024 text/html Patient states the pain is around 0-2/10 today. States she was walking down her gamble yesterday and felt that her knee was about to give out, but she did not fall. Feels frequent burning along the medial and lateral sides of the patella. 3min late Debbi Tilley, GERMAN TUTOR [address], [place], [address], [facility] 07/04/2024 15:14:53 07/06/2024 text/html Patient states the knee is doing better and does get pain but it is off and on. She has been doing exercises at home on top of going to the pool a few times a week and walking more. Derrick Deleon, DPT [address], [place], [address], [facility] 07/06/2024 14:42:40 OBGyn Episode No OBEpisode recorded.
--- OUTSIDE RECORDS SUMMARY | 2025-02-13 17:40 | XMS_ITS | Patient Health Record ---
Author Organization [facility] Address [address] [place] [address] Care Team Providers Care Greenhouse Or Nursery Transplanter Name Role Phone Telma Sutton Primary Care Provider Unavailab Xu Macdonald Unavailable [phone] NONE, NONE Unavailable Unavailable Allergies Allergen (clinical [...] 1 tablet Orally Q 6 hours prn nausea; Duration: 30 day(s) 08/06/2016 Active Losartan Potassium-HCTZ 100-25 [...] Problem Status W/U Status Risk Notes Problem Epigastric pain (24175041) Epigastric pain (R10.13) Active confirmed Problem Screening for malignant neoplasm of colon (933879823) Encounter for screening for malignant neoplasm of colon (Z12.11) Active confirmed Problem Screening for malignant neoplasm of rectum (323502371) Encounter for screening for malignant neoplasm of rectum (Z12.12) Active confirmed Problem Gallstones (400974549) Gallstones (K80.20) Active confirmed Problem Gastroesophageal reflux disease (507070222) GERD (gastroesophag eal reflux disease) (K21.9) Active confirmed Plan Of Treatment Future Test Test Name Order Date COLONOSCOPY 01/05/2013 Insurance Providers Payer Name Payer Address Payer Phone Subscriber Number Group Number Insured Name Patient Relationship to Insured Coverage Start Date Coverage End Date MEDICARE OF [place] [address] [place] [id number] CHINMAY MADSEN Self - patient is the insured MEDICAID OF [facility] [address] [place] [address] [id number] CHINMAY MADSEN Self - patient is the [...] --n egative Kidney stones Breast cancer--2012--right side--lumpect keoyn with lymph node mets--XRT Denies [place],DM,CVA,Lung disease,renal dise ase Surgical History Surgery Date(Month/Year) Wrist ganglion Lumpectomy, right breast as above
== END 2025-02-13 15:33 | disposition home or self-care (01) ==
LOC: HO.ENCR 14:31
PROVIDERS: PCP Internal Medicine; Visit Provider Student in an Organized Health Care Education/Training Program
DX: E16.1 Other hypoglycemia (principal)
CPT/HCPCS: 99205; G2211

== ENCOUNTER → 2025-02-13 14:30 | Outpatient (BNVA) | payer OTHER, SELFPAY | PROVIDERS: PCP Internal Medicine; Visit Provider Student in an Organized Health Care Education/Training Program | DX: E16.2 Hypoglycemia, unspecified (principal) | CPT/HCPCS: 82947 ==

== ENCOUNTER 2025-04-09 09:03 | Outpatient (REF) | payer OTHER, SELFPAY ==
--- OUTSIDE RECORDS SUMMARY | 2025-04-09 11:20 | XMS_ITS | Encounter Summary ---
Author Organization [facility] Address [address] [place] [address] Care Team Providers Care Engine House Helper Name Role Phone Telma Sutton MD Primary Care Provider [phone] Encounter Details Date Type Department Care Team (Late Contact Info) Description 10/23/[address] [facility] - Main Lab [address] [facility] [place] [address] Telma Sutton MD [address] [place] [address] [place] [address] Pure hypercholesterolemia, unspecified; Essential (primary) hypertension Social History Tobacco Use Types Packs/Day Years Used Date Smoking Tobacco: Former Cigarettes 0 Q uit: 04/11/1983 Smokeless Tobacco: Never Alcohol [...] not to disclose 2024 9:11 AM EST documented as of this encounter Plan of Treatment Upcoming Encounters Date Type Department Care Team (Late Contact Info) Description 05/16/2025 11:00 AM EST Office Visit Breast [facility] [address] [place] [address] Maria Isabel Choe MD [address] [place] [address] Scheduled Orders Name Type Priority Associated Diagnoses Orde r Schedule Comprehensive metabolic panel Lab Routine Pure hypercholesterolemia, unspecified Essential (primary) hypertension Ordered: 10/23/2024 Lipid panel with reflex to direct LDL Lab Routine Pure hypercholesterolemia, unspecified Ordered: 10/23/2024 documented as of this encounter Visit Diagnoses Diagnosis Pure hypercholesterolemia, unspecified Essential (primary) hypertension Unspecified essential hypertension documented in this encounter Care Teams Engine House Helper Relationship Specialty Start Date End Date Telma Sutton MD [address] PCP - General 02/27/18 documented as of this encounter
--- OUTSIDE RECORDS SUMMARY | 2025-04-09 11:20 | XMS_ITS | Clinical Summary ---
Author Organization [facility] Prior to 09/08/24 Address [address] [place] [address] Care Team Providers Care House Admin Name Role Phone Telma Sutton MD Primary [...] morning on an empty stomach. 0 Active Jmxakbm-Ublzljskv-Yvt chávez D (CALCIUM 1200+D3 PO) Take by [...] age to complete this topic Care Teams House Admin Relationship Specialty Start Date End Date Telma Sutton MD [address] [facility] [address] [place] [id number] PCP - General Internal Medicine 07/11/17
--- OUTSIDE RECORDS SUMMARY | 2025-04-09 11:20 | XMS_ITS | Patient Health Record ---
Author Organization [facility] Address [address] [place] [address] Care Team Providers Care Marine Engineering Technicians Name Role Phone Dirksmiley Telma Primary Care Provider Unavailab Xu Macdonald Unavailable [phone] NONE, NONE Unavailable Unavailable Allergies Allergen (clinical drug ingredient) Drug/Non Drug Allergy documented on EMR Reaction Allergy Type Onset Date Status Codeine Phosphate Unknown Drug Allergy Active morphine Duramorph Unknown Drug Allergy Active acetaminophen / oxycodone Percocet Unknown Drug Allergy Active Reason For Referral No Information Medications Medication SIG (Take, Route, Frequency, Duration) Notes Start Date End Date Status Zofran 4 MG Tablet 1 tablet Orally Q 6 hours prn nausea; Duration: 30 day(s) 08/06/2016 Active Losartan Potassium-HCTZ 100-25 MG Tablet 1 tablet Orally Once a day Active Omeprazole 20 MG Tablet Delayed Release 1 capsule Orally prn Acti ve Naprosyn 250 MG Tablet 1 tablet Orally prn Active Pravastatin Sodium 10 MG Tablet 1 tablet Orally Once a day Active Aspir-81 81 MG Tablet Delayed Release 1 tablet Orally Once a day Active Letrozole 2.5 MG Tablet 1 tablet Orally Once a day Active Immunizations Vaccine Route Administration Date Status Comme nts Flu vaccine no Preserv 3 and > Unknown 01/14/2015 Admin istered Social History Social History Additional Details Category Social Info Options Details Miscellaneous: Marital status: single Occupation: [employer]- Section Notes: Nonsmoker > 10 yrs ago; no s ig. alcohol Nonsmoker > 10 yrs ago; no s ig. alcohol Problems Problem Type SNOMED Code ICD Code Onset Dates Problem Status W/U Status Risk Notes Problem Epigastric pain (05737607) Epigastric pain (R10.13) Active confirmed Problem Screening for malignant neoplasm of colon (677241658) Encounter for screening for malignant neoplasm of colon (Z12.11) Active confirmed Problem Screening for malignant neoplasm of rectum (341879565) Encounter for screening for malignant neoplasm of rectum (Z12.12) Active confirmed Problem Gallstones (000043030) Gallstones (K80.20) Active confirmed Problem Gastroesophageal reflux disease (340112266) GERD (gastroesophag eal reflux disease) (K21.9) Active confirmed Plan Of Treatment Future Test Test Name Order Date COLONOSCOPY 01/05/2013 Insurance Providers Payer Name Payer Address Payer Phone Subscriber Number Group Number Insured Name Patient Relationship to Insured Coverage Start Date Coverage End Date MEDICARE OF [place] [address] [place] [address] [id number] CHINMAY MADSEN Self - patient is the insured MEDICAID OF [facility] [address] [place] [address] [id number] CHINAMY MADSEN Self - patient is the insured [...] side--lumpect keyon with lymph node mets--XRT Denies KS,DM,CVA,Lung disease,renal dise ase Surgical History Surgery Date(Month/Year) Wrist ganglion Lumpectomy, right breast as above
--- OUTSIDE RECORDS SUMMARY | 2025-04-09 11:20 | XMS_ITS | Clinical Summary ---
Author Organization 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 Name Role Phone Telma Olmstead MD Primary Care Provider Allergies Active Allergy [...] Noted Date Diagnosed Date Diverticulosis 03/23/2024 Esophagitis, Greenwood grade A 03/23/2024 Gastric ulcer 03/23/2024 Hiatal [...] Encounters Date Type Department Care Team Description 02/11/2025 2:29 PM EST - 02/11/2025 11:59 PM EST Hospital Encounter [facility] Ultrasound [address] [place] [address] Cyst of right ovary; Right lower quadrant abdominal swelling, mass and lump Discharge Disposition: Home or Self Care from [...] of sepsis; COMMENT: Secondary to UTI Esophagitis, Greenwood grade A DX:Esophagitis, Greenwood grade A Hiatal hernia DX:Hiatal hernia Tubular adenoma DX:Tubular adeno ma Rheumatoid arthritis ([facility]/ C V24, [facility] V28) DX:Rheumatoid arthritis ([facility] ) Nephrolithiasis DX:Nephrolithias is Glaucoma DX:Glaucoma Breast cancer ([facility] V24, [facility] V28) DX:Breast cancer ([facility]); COMMENT: s/p left side lumpectomy in 2013 ADD (attention deficit disorder) DX:ADD (attention deficit disorder) Arthritis DX:Arthritis History of shoulder fracture 04/2006 DX: History of shoulder fracture Ankle fracture, right 1998 DX:Ankle f racture, right Hip fracture ([facility] V24, [facility] V28) 05/2018 DX:Hip fracture ([facility]); COMMENT: right ; s/p ORIF Herpes [...] not to disclose 2024 9:11 AM EST Last Filed Vital Signs Vital Sign Reading [...] Care Team (Late st Contact Info) Description 05/16/2025 11:00 AM EST Office Visit Breast Care [facility] [address] [place] [address] Maria Isabel Choe MD [address] [place] [address] Health Maintenance Due Date Last Done Comments Cholesterol Screening (Lipid Panel) 03/19/2022 Falls Risk Assessment 03/19/2022 Hepatitis C Screening 03/19/2022 Medicare Annual Wellness Visit 03/19/2022 Social Influencers of Health Screening 03/19/2022 Depression Screening 04/11/2024 COVID-19 Vaccine ( season) 2024 02/27/2023, 01/06/2022, 07/29/2021, Additional history exists Influenza Vaccine (#1) 2024 , 01/06/2022, 03/23/2021, Additional history exists Hypertension/CHF/CAD Annual [...] Procedure Name Priority Date/Time Associated Diagnosis Comments US PELVIS NON OB COMPLETE W TRANSVAGINAL Routine 02/11/2025 3:28 PM EST Cyst of right ovary Right lower quadrant abdominal swelling, mass and lump MG MAMMO DIGITAL SCREENING W SHAUN BILAT Routine 08/27/2024 3:16 PM EDT Cyst of right ovary Screening mammogram for breast cancer History of breast cancer COMPREHENSIVE METABOLIC PANEL STAT 04/27/2024 5:14 PM EST VANESSA DEXA AXIAL SKELETON Routine 11/01/2023 8:05 AM EDT Other specified disorders of bone density and structure, multiple sites HM COLONOSCOPY Routine 05/27/2020 from Last 3 Months or Most Recently Relevant to Health Maintenance Results * US Pelvis Non OB Complete w Transvaginal (02/11/2025 3:28 PM EST) Anatomical Region Laterality Modality Body, Pelvis Ultrasound 02/14/2025 3:41 PM EST Impressions 02/14/2025 3:49 PM EST Slowly enlarging right ovarian cyst. No suspicious features -------- FINAL REPORT -------- Dictated By: Rubio Tamayo Dictated Date: 02/14/2025 15:41 ET Assigned Physician: Rubio Tamayo Reviewed and Electronically Signed By: Rubio Tamayo Signed Date: 02/14/2025 15:49 ET Workstation ID: [id number] Transcribed By: Self Edit Transcribed Date: 02/14/2025 15:41 ET Narrative 02/14/2025 3:49 PM EST EXAM: PELVIC ULTRASOUND CLINICAL INFORMATION: Ovarian cyst. Evaluate for interval changes. TECHNIQUE: Transcutaneous pelvic ultrasound. Transvaginal scanning was performed following voiding to better evaluate the uterine contents and adnexa. Color mapping was performed. Doppler spectral analysis was performed. Comparison: Portions of a previous ultrasound 08/09/24 FINDINGS: Quality: Adequate. The urinary bladder does not allow optimal acoustical access to the anatomy prior to transvaginal scanning. Expected region of vagina: No suspicious abnormality Cervix: No suspicious abnormality. The estimated cervical length is 1.7 cm. Uterine position: Anteverted Uterine size: 3.9 x 1.4 x 2.1 cm Endometrium: Between 1 and 2 mm. No focal thickening or mass. No fluid in the endometrial cavity. Myometrium: Homogeneous Uterine contour: Smooth Right ovary: There is an anechoic circumscribed cyst in the region of the right ovary. No mural nodule, thick septation or debris level. No abnormal color signal. 02/11/25-4.9 x 5.5 x 4.3 cm 08/09/24-4.8 x 4.4 x 4.8 cm 07/20/23-4.6 x 3.7 x 4.1 cm 12/10/20-3.0 x 3.[address] 06/04/22 circumscribed homogeneous fluid attenuating thin-walled cyst measured 4.3 x 3.9 x 4.5 cm Color mapping: Color signal present in the adjacent tissue. Doppler spectral analysis: Vascular spectra were obtained in the adjacent tissue. Left ovary: Not demonstrated. No suspicious left adnexal mass or collection Color mapping: No abnormal color signal demonstrated Doppler spectral analysis: Not applicable Free fluid: None. Procedure Note Rubio Tamayo MD - 02/14/2025 EXAM: PELVIC ULTRASOUND CLINICAL INFORMATION: Ovarian cyst. Evaluate for interval changes. TECHNIQUE: Transcutaneous pelvic ultrasound. Transvaginal scanning was performed following voiding to better evaluatethe uterine contents and adnexa. Color mapping was performed. Doppler spectral analysis was performed. Comparison: Portions of a previous ultrasound 08/09/24 FINDINGS: Quality: Adequate. The urinary bladder does not allow optimal acousticalaccess to the anatomy prior to transvaginal scanning. Expected region of vagina: No suspicious abnormality Cervix: No suspicious abnormality. The estimated cervical length is 1.7cm. Uterine position: Anteverted Uterine size: 3.9 x 1.4 x 2.1 cm Endometrium: Between 1 and 2 mm. No focal thickening or mass. No fluid inthe endometrial cavity. Myometrium: Homogeneous Uterine contour: Smooth Right ovary: There is an anechoic circumscribed cyst in the region of theright ovary. No mural nodule, thick septation or debris level. No abnormalcolor signal. 02/11/25-4.9 x 5.5 x 4.3 cm 08/09/24-4.8 x 4.4 x 4.8 cm 07/20/23-4.6 x 3.7 x 4.1 cm 12/10/20-3.0 x 3[address] 06/04/22 circumscribed homogeneous fluid attenuating thin-walled cystmeasured 4.3 x 3.9 x 4.5 cm Color mapping: Color signal present in the adjacent tissue. Doppler spectral analysis: Vascular spectra were obtained in theadjacent tissue. Left ovary: Not demonstrated. No suspicious left adnexal mass orcollection Color mapping: No abnormal color signal demonstrated Doppler spectral analysis: Not applicable Free fluid: None. IMPRESSION: Slowly enlarging right ovarian cyst. No suspicious features -------- FINAL REPORT -------- Dictated By: Rubio Tamayo Dictated Date: 02/14/2025 15:41 ET Assigned Physician: Rubio Tamayo Reviewed and Electronically Signed By: Rubio Tamayo Signed Date: 02/14/2025 15:49 ET Workstation ID: [id number] Transcribed By: Self Edit Transcribed Date: 02/14/2025 15:41 ET us Maria Isabel Choe MD IMG US PROCEDURES Final Result * MG Mammo Digital Screening w Shaun bilat (08/27/2024 3:16 PM EDT) Anatomical Region [...] year. Mamm[facility] location: [facility] [address], [address] -------- FINAL REPORT -------- Dictated By: Rubio Tamayo Dictated Date: 08/27/2024 17:57 ET Assigned Physician: Rubio Tamayo Reviewed and Electronically Signed By: Rubio Tamayo Signed Date: 08/27/2024 18:03 ET Workstation ID: [id number] Transcribed By: Self Edit Transcribed Date: 08/27/2024 [...] None Computer-aided detection was employed with the [employer] AI 3-D. TISSUE DENSITY: There are scattered [...] None Computer-aided detection was employed with the [employer] AI 3-D. TISSUE DENSITY: There are scattered [...] year. Mammography location: [facility] [address], [address] -------- FINAL REPORT -------- Dictated By: Rubio Tamayo Dictated Date: 08/27/2024 17:57 ET Assigned Physician: Rubio Tamayo Reviewed and Electronically Signed By: Rubio Tamayo Signed Date: 08/27/2024 18:03 ET Workstation ID: [id number] Transcribed By: Self Edit Transcribed Date: 08/27/2024 17:57 ET Maria Isabel Choe MD IMG BI PROCEDURES Final Result * Comprehensive metabolic panel (04/27/2024 5:14 PM EST) Sodium 138 133 - 145 mmol/L LAB CHEMISTRY METHOD 04/27/2024 8:05 PM [facility] Potassium 4.2 3.5 - 5.5 mmol/L LAB CHEMISTRY METHOD 04/27/2024 8:05 PM [facility] Chloride 103 96 - 110 mmol/L LAB CHEMISTRY METHOD 04/27/2024 8:05 PM [facility] CO2 30 21 - 32 mmol/L LAB CHEMISTRY METHOD 04/27/2024 8:05 PM [facility] Anion Gap 5 3 - 11 LAB CHEMISTRY METHOD 04/27/2024 8:05 PM [facility] Glucose 99 70 - 100 mg/dL LAB CHEMISTRY METHOD 04/27/2024 8:05 PM [facility] BUN 21 5 - 25 mg/dL LAB CHEMISTRY METHOD 04/27/2024 8:05 PM [facility] Creatinine 0.81 0.50 - 1.10 mg/dL LAB CHEMISTRY METHOD 04/27/2024 8:05 PM [facility] eGFR 76 >=60 mL/min/1. 73m2 LAB CHEMISTRY METHOD 04/27/2024 8:05 PM [facility] Comment:Calculation based on the Chronic Kidney Disease Epidemiology Collaboration (CKD-EPI) equation refit without adjustment for race. BUN/Creatinine Ratio 25.9 LAB CHEMISTRY METHOD 04/27/2024 8:05 PM [facility] Calcium 8.6 8.5 - 10.5 mg/dL LAB CHEMISTRY METHOD 04/27/2024 8:05 PM [facility] AST (SGOT) 22 10 - 42 unit/L LAB CHEMISTRY METHOD 04/27/2024 8:05 PM [facility] ALT (SGPT) 19 10 - 60 unit/L LAB CHEMISTRY METHOD 04/27/2024 8:05 PM [facility] Alkaline Phosphatase 83 42 - 121 unit/L LAB CHEMISTRY METHOD 04/27/2024 8:05 PM [facility] Total Protein 7.1 6.0 - 8.0 g/dL LAB CHEMISTRY METHOD 04/27/2024 8:05 PM [facility] Albumin 4.0 3.2 - 5.0 g/dL LAB CHEMISTRY METHOD 04/27/2024 8:05 PM [facility] Total Bilirubin 0.6 0.0 - 1.4 mg/dL LAB CHEMISTRY METHOD 04/27/2024 8:05 PM [facility] Blood Venous blood specimen / Unknown Venipuncture / Unknown 04/27/2024 5:14 PM EST 04/27/2024 5:27 PM EST us Pako Woodard DO LAB BLOOD ORDERABLES Final Resu lt [facility] [address] [place] [address], * VANESSA DEXA AXIAL SKELETON (11/01/2023 8:05 AM EDT) Anatomical Region Laterality Modality Mammography 10/31/2023 3:04 PM EDT Narrative 11/01/2023 8:05 AM EDT [facility] Diagnostic Imaging Department [address] [place] [address] Patient: CHINMAY ARRINGTON Laura Drake./Age/Sex: 1950 - 72 - F Unit#: [id number] Location/Status: SPDIMAM/REG CLI [facility] Ordering Physician: TELMA OLMSTEAD MD Vanessa Dexa [...] probability of hip fracture of 4.7%. Code 74405 Dictating Physician: HAYDEN MACKAY MD Electronically Signed by: HAYDEN MACKAY MD Dic Date/Time: 11/01/23 0759 Sign date/Time: 11/01/23 0805 Procedure Note Hayden Mackay MD - 01/25/2024 [facility] Diagnostic Imaging Department [address] [place] [address] Patient: TENACHINMAY D.O.B./Age/Sex: 1950 - 72 - F Unit#: [id number] Location/Status: [facility] Mnemonic/Ordering Site: [facility] Ordering Physician: TELMA OLMSTEAD MD [facility] Dexa Axial Skeleton - 10/31/23 - 1525 [...] probability of hip fracture of 4.7%. Code 57318 Dictating Physician: HAYDEN MACKAY MD Electronically Signed by: HAYDEN MACKAY MD Dic Date/Time: 11/01/23 0759 Sign date/Time: 11/01/23 0805 Telma Olmstead MD IMG BI PROCEDURES Final Resul t * Colonoscopy (05/27/2020) Colonoscopy No Interpretation , Abstracted Anatomical Region Laterality Modality Other Historical Provider HEALTH MAINTENANCE Final Result from Last 3 Months or Most Recently Relevant to Health Maintenance Insurance [address] [place] [address] [facility] MEDICARE [employer]VANTAGE MEDICAID - [place] Care Teams Cloth Finishing Range Back Tender Relationship Specialty Start Date End Date Telma Olmstead MD [address] [place], [place] PCP - General 02/27/18
[2025-04-09 12:12] LABS: Anion Gap 11 (12-20); Blood Urea Nitrogen 16 mg/dL (9-16); Calcium 8.6 mg/dL (8.4-10.2); Carbon Dioxide 26 mmol/L (22-29); Chloride 109 mmol/L (96-108); Estimated Glomerular Filt Rate > 60; Free T4 (Free Thyroxine) 1.08 ng/dL (0.71-1.85); Potassium 3.4 mmol/L (3.3-5.1); Sodium 143 mmol/L (135-145); Thyroid Stimulating Hormone 0.59 uIU/mL (0.32-4.0)
== END 2025-04-09 09:04 | disposition home or self-care (01) ==
LOC: HO.LAB 09:03
PROVIDERS: PCP Internal Medicine; Visit Provider Student in an Organized Health Care Education/Training Program
DX: Z01.84 Encounter for antibody response examination (principal); Z51.81 Encounter for therapeutic drug level monitoring; E16.2 Hypoglycemia, unspecified; Z13.29 Encounter for screening for other suspected endocrine disorder
CPT/HCPCS: 36415; 80048; 80337; 82024; 82533; 83525; 83789; 84206; 84439; 84443; 84681; 86316; 86337